=== PATIENT | female | born 1965 | race Caucasian/White ===

== ENCOUNTER 2019-03-15 06:18 | Inpatient (IN) ==
--- NOTE | 2019-01-17 10:57 | PAT Medication Instructions ---
Medication Instructions Date of Service January 17, 2019 Home Medications amitriptyline 50 mg PO QPM aspirin [Aspir-81] 81 mg PO DAILY atorvastatin 10 mg PO PM biotin 5,000 mcg PO DAILY plcfkdcfoa-arwncxmldylqq-avkv 1 cap PO UD PRN cholecalciferol (vitamin D3) 1,000 unit PO DAILY cinnamon bark [Cinnamon] 2,000 mg PO DAILY cranberry 1 dose PO DAILY cyanocobalamin (vitamin B-12) 1,000 mcg PO DAILY diphenhydramine HCl [Benadryl] 25 mg PO UD PRN ferrous sulfate [iron] 325 mg PO DAILY glucosamine-chondroitin 1 tab PO DAILY hydrochlorothiazide 12.5 mg PO QAM insulin detemir U-100 [Levemir 38 unit SUBCUT BID lactobacillus combination no.4 1 tab PO DAILY meloxicam 15 mg PO QPM metformin 1,000 mg PO BID metoprolol tartrate 50 mg PO BID milk thistle seed extract 140 mg PO DAILY multivitamin [Multiple Vitamins] 1 tab PO DAILY niacin 500 mg PO QPM omega 8-fwv-uua-fish oil [Fish Oil] 2 cap PO DAILY omeprazole 40 mg PO QPM prasterone (dhea) [DHEA] 50 mg PO DAILY rizatriptan [Maxalt] 1 dose PO UD PRN trazodone 50 mg PO HS turmeric 1 cap PO DAILY ASK your surgeon for instructions qoppzxqpsl-jnzmauhiqdioy-wler 1 cap PO UD PRN meloxicam 15 mg PO QPM STOP taking 2 weeks before surgery (or as soon as possible if surgery is within 2 weeks) biotin 5,000 mcg PO DAILY cinnamon bark [Cinnamon] 2,000 mg PO DAILY cranberry 1 dose PO DAILY glucosamine-chondroitin 1 tab PO DAILY milk thistle seed extract 140 mg PO DAILY omega 4-tmk-pnh-fish oil [Fish Oil] 2 cap PO DAILY prasterone (dhea) [DHEA] 50 mg PO DAILY turmeric 1 cap PO DAILY STOP taking 24 hours before surgery niacin 500 mg PO QPM DO NOT take the morning of surgery cholecalciferol (vitamin D3) 1,000 unit PO DAILY cyanocobalamin (vitamin B-12) 1,000 mcg PO DAILY diphenhydramine HCl [Benadryl] 25 mg PO UD PRN ferrous sulfate [iron] 325 mg PO DAILY lactobacillus combination no.4 1 tab PO DAILY metformin 1,000 mg PO BID multivitamin [Multiple Vitamins] 1 tab PO DAILY Take morning of surgery With a small sip of water, OTHERWISE NOTHING TO EAT OR DRINK AFTER MIDNIGHT: aspirin [Aspir-81] 81 mg PO DAILY metoprolol tartrate 50 mg PO BID rizatriptan [Maxalt] 1 dose PO UD PRN (if needed) Take evening before surgery amitriptyline 50 mg PO QPM atorvastatin 10 mg PO PM diphenhydramine HCl [Benadryl] 25 mg PO UD PRN (if needed) insulin detemir U-100 [Levemir 38 unit SUBCUT BID metoprolol tartrate 50 mg PO BID omeprazole 40 mg PO QPM rizatriptan [Maxalt] 1 dose PO UD PRN (if needed) trazodone 50 mg PO HS Insulin Dependent Diabetic Patients * Test your blood sugar the morning of surgery * If Blood Sugar is GREATER THAN 150, take HALF of your regular dose of: insulin detemir U-100 [Levemir take 19 units * If Blood Sugar is LESS THAN 150, DO NOT TAKE ANY: insulin detemir U-100 [Levemir Other Notes If you have any questions please call us at [phone] or [phone] or [phone] or [phone]
--- NOTE | 2019-01-17 11:52 | Anesthesiology Consultation ---
Date of Service January 17, 2019 Assessment & Plan (1) Encounter for pre-operative examination: - Surgery is being cancelled at this point due to lack of surgeon's availability. Will need to be rescheduled at a later date. Chart Review Chart Review: Patient seen in Pre Admission Testing Consults Requested medical (Dr. Leon (already cleared)) Patient was seen by PCPs office on 12/28/18. Per note, "Medically cleared for knee surgery". Teaching & Discussion Pre-Anesthesia Teaching/Discussion Notes: Instructed NPO after midnight before surgery, except medications with 15 cc of water. Medication instructions provided according to the PAT guidelines. History Surgery Operation Date: 02/02/19 09:35 Proposed Procedures p Left Total Knee Arthroplasty - Yves Gates MD Height/Weight Height: 5 ft 4 in Weight: 90.8 kg Allergies Allergy/AdvReac Type Severity Reaction Status Date / Time No Known Allergies Allergy Verified 01/10/19 11:46 Medications Home Medications Medication Instructions Recorded Confirmed Last Taken amitriptyline 50 mg PO QPM 01/10/19 01/10/19 01/09/19 aspirin [Aspir-81] 81 mg PO DAILY 01/10/19 01/10/19 01/09/19 atorvastatin 10 mg PO PM 01/10/19 01/10/19 01/09/19 biotin 5,000 mcg PO DAILY 01/10/19 01/10/19 Unknown oebazkzfzw-tygsuswqgxced-drhn 1 cap PO UD PRN 01/10/19 01/10/19 Unknown [Fioricet] cholecalciferol (vitamin D3) 1,000 unit PO DAILY 01/10/19 01/10/19 Unknown [Vitamin D3] cinnamon bark [Cinnamon] 2,000 mg PO DAILY 01/10/19 01/10/19 Unknown cranberry 1 dose PO DAILY 01/10/19 01/10/19 Unknown cyanocobalamin (vitamin B-12) 1,000 mcg PO DAILY 01/10/19 01/10/19 Unknown [Vitamin B-12] diphenhydramine HCl [Benadryl] 25 mg PO UD PRN 01/10/19 01/10/19 Unknown ferrous sulfate [iron] 325 mg PO DAILY 01/10/19 01/10/19 Unknown glucosamine-chondroitin 1 tab PO DAILY 01/10/19 01/10/19 Unknown hydrochlorothiazide 12.5 mg PO QAM 01/10/19 01/10/19 01/10/19 insulin detemir U-100 [Levemir 38 unit SUBCUT BID 01/10/19 01/10/19 01/10/19 FlexTouch U-100 Insuln] lactobacillus combination no.4 1 tab PO DAILY 01/10/19 01/10/19 Unknown [Probiotic] meloxicam 15 mg PO QPM 01/10/19 01/10/19 01/09/19 metformin 1,000 mg PO BID 01/10/19 01/10/19 01/10/19 metoprolol tartrate 50 mg PO BID 01/10/19 01/10/19 01/10/19 milk thistle seed extract 140 mg PO DAILY 01/10/19 01/10/19 Unknown multivitamin [Multiple Vitamins] 1 tab PO DAILY 01/10/19 01/10/19 Unknown niacin 500 mg PO QPM 01/10/19 01/10/19 01/09/19 omega 6-ohy-ggi-fish oil [Fish Oil] 2 cap PO DAILY 01/10/19 01/10/19 Unknown omeprazole 40 mg PO QPM 01/10/19 01/10/19 01/09/19 prasterone (dhea) [DHEA] 50 mg PO DAILY 01/10/19 01/10/19 Unknown rizatriptan [Maxalt] 1 dose PO UD PRN 01/10/19 01/10/19 Unknown trazodone 50 mg PO HS 01/10/19 01/10/19 01/09/19 turmeric 1 cap PO DAILY 01/10/19 01/10/19 Unknown Past Medical History Medical History Acid reflux Anemia "SLIGHTLY" Diabetes Fluttering sensation of heart HX OF - NO OCCURENCE IN PAST 2 YRS High triglycerides History of anesthesia reaction 1992 - WITH , EPIDURAL DID NOT TAKE , 1996 - NO PROBLEMS WITH History of diverticulitis History of kidney stones Hyperlipidemia Hypertension Loud snoring SLEEP STUDY 10 YR AGO - NO FINDINGS Migraines Osteoarthritis Trouble swallowing STARTED 2 YR AGO - HX ESOPHAGEAL STRETCH X1..HELPED FOR 1 YR -RE-OCCURED - UPCOMING [facility] March - [facility] [place] Varicose vein of leg RIGHT Past Family History Family History Grandmother Family history of breast cancer Other Family history of heart disease Past Surgical History Surgical History History of 2 sections History of cholecystectomy History of colon resection WITH APPENDECTOMY AND RIGHT OPHERECTOMY History of colonoscopy History of endoscopy WITH ESOPHAGEAL STRETCHING History of hernia surgery WITH MESH Past Anesthesia History No Hx of Anesthesia Complications and No Family Hx of Anesthesia Complications History of PONV No Motion Sickness Screening History of Motion Sickness: No Social History Smoking Status: Former smoker tobacco type: cigarettes Do You Dip or Chew Tobacco: No Smoking End Date: Quit 2003 Hx Alcohol Use: No Hx Substance Use: No substance use type: does not use Exercise / Class Metabolic Activity II 4-5 Yardwork/Stairs/Walk up hill (Limited recently due to knee pain. Able to climb stairs. Denies CP or SOB. ) Review of Systems Patient denies chest pain, shortness of breath, dyspnea on exertion, cough, wheezing, palpitations. +Joint pain (knees) +Acid reflux (Controlled with current medications) Physical Exam Vital Signs BP: 140/82 P: 68 R: 16 T: 98.0 SPO2: 97% on RA Constitutional + obese ENMT Mouth: + dentures (Full upper set, bottom partial ) Thyromental Distance: > or= 3.5 Finger Breadths (3.5) Mallampati Class: II Neck normal visual inspection and + thick neck; neck extension not limited Respiratory normal respiratory effort Auscultation: lungs clear to auscultation bilaterally Cardiovascular Rate/Rhythm: regular rate and regular rhythm Heart Sounds: no murmur Vessels: no carotid bruit Neurologic moves all extremities Psychiatric Orientation: alert and oriented x 3 Testing Electrocardiogram Date: 01/17/19 Findings: + NSR @ (66) Chest X-Ray Date: 01/17/19 Laboratory Results 01/17/19 11:35 01/17/19 11:35 Blood Type AB Negative 01/17/19 11:35 Antibody Screen NEGATIVE 01/17/19 11:35 PT 10.1 Seconds (9.0-12.0) 01/17/19 11:35 INR 1.0 (0.9-1.1) 01/17/19 11:35 APTT 24.9 Seconds (21.0-31.0) 01/17/19 11:35 Hemoglobin A1c 7.6 % (4.5-5.6) H 01/17/19 11:35 Urine Color Yellow 01/17/19 Unknown Urine Appearance Clear (Clear) 01/17/19 Unknown Urine pH 6.5 (4.5-7.5) 01/17/19 Unknown Ur Specific [place] 1.017 (1.000-1.030) 01/17/19 Unknown Urine Protein Trace (Negative) H 01/17/19 Unknown Urine Glucose (UA) 3+ (Negative) H 01/17/19 Unknown Urine Ketones Negative (Negative) 01/17/19 Unknown Urine Nitrite Negative (Negative) 01/17/19 Unknown Ur Leukocyte Esterase Negative (Negative) 01/17/19 Unknown Urine WBC (Auto) 0 /hpf (0-5) 01/17/19 Unknown Urine RBC (Auto) 0-4 /hpf (0-4) 01/17/19 Unknown U Hyaline Cast (Auto) 0 /lpf (0-5) 01/17/19 Unknown U Epithel Cells (Auto) 20-30 /lpf (0-5) H 01/17/19 Unknown Urine Bacteria (Auto) Negative (Negative) 01/17/19 Unknown 01/17/19 Unknown Urine Culture - Preliminary Urine,Clean Catch Pin-point growth present, reincubating.
[2019-01-17 12:07] LABS: Basophils # (auto) 0.04 K/uL (0-0.2); Basophils % (auto) 0.6 %; Eosinophils # (auto) 0.14 K/uL (0-0.5); Eosinophils % (auto) 2.1 %; Hemoglobin 13.8 g/dL (12.0-16.0); Immature Granulocytes # (auto) 0.01 K/uL (0.00-0.02); Immature Granulocytes % (auto) 0.2 %; Lymphocytes # (auto) 2.68 K/uL (1.2-3.4); Lymphocytes % (auto) 40.5 %; Mean Corpuscular Hgb Conc 34.5 g/dL (32-36); Mean Corpuscular Volume 97.6 fL (80-100); Mean Platelet Volume 9.2 fL (7.4-10.4); Monocytes # (auto) 0.44 K/uL (0.11-0.59); Monocytes % (auto) 6.7 %; Neutrophils % (auto) 49.9 %; Platelet Count 316 K/uL (130-400); RDW Coefficient of Variation 12.6 % (11.5-14.5); RDW Standard Deviation 44.4 fL (36.4-46.3); White Blood Count 6.61 K/uL (4.8-10.8)
[2019-01-17 12:14] LABS: Appearance Urine Clear (Clear); Bacteria Urine Automated Negative (Negative); Bilirubin Urine Negative (Negative); Blood Urine Negative (Negative); Cast Urine Automated 0 /lpf (0-5); Color Urine Yellow; Epithelial Cell Urine Auto 20-30 /lpf (0-5); Glucose Urine UA 3+ (Negative); Ketones Urine Negative (Negative); Leukocyte Esterase Urine Negative (Negative); Nitrite Urine Negative (Negative); Protein Urine Trace (Negative); RBC Urine Automated 0-4 /hpf (0-4); Specific Gravity Urine 1.017 (1.000-1.030); Urobilinogen Urine Negative (Negative); WBC Urine Automated 0 /hpf (0-5); pH Urine 6.5 (4.5-7.5)
[2019-01-17 12:23] LABS: Partial Thromboplastin Ratio 0.9; Partial Thromboplastin Time 24.9 Seconds (21.0-31.0); Prothrombin Time 10.1 Seconds (9.0-12.0)
[2019-01-17 12:35] LABS: Estimated Average Glucose 171 mg/dl; Hemoglobin A1C 7.6 % (4.5-5.6)
--- NOTE | 2019-01-17 12:49 | XRay Report ---
XR chest Pre-admission PA/Lat CLINICAL HISTORY: Preoperative chest COMPARISON STUDY: No previous studies for comparison. FINDINGS: The heart is at the upper limits of normal in size. There is no failure. There is no focal pulmonary consolidation. There are no pleural effusions.[ IMPRESSION: No active disease in the chest. Electronically signed by: Richard Mcgee M.D. 01/17/2019 12:47 PM
[2019-01-17 13:51] LABS: Albumin Level 3.9 gm/dl (3.4-5.0); Calcium 9.5 mg/dl (8.5-10.1); Creatinine Clr Calc Pharmacy 99.1 ml/min; Est GFR (Non-African American) 97.5; Potassium 4.1 mmol/L (3.5-5.1)
--- NOTE | 2019-03-14 17:27 | History and Physical Report ---
DATE OF ADMISSION: 03/15/2019 CHIEF COMPLAINT: Chronic right knee pain and instability. HISTORY OF PRESENT ILLNESS: This is a 53-year-old female patient of Dr. Chambers'marky complaining of chronic right knee pain and instability, longstanding, now progressively getting worse. The patient has failed conservative treatment including intra-articular injections with steroids and viscosupplementation, the use of glucosamine chondroitin, anti-inflammatories. The patient has increased pain with weightbearing activities and her pain does interfere with her activities of daily living. The patient has been diagnosed with right knee end-stage osteoarthritis per clinical and radiographic exams and wishes to proceed with a right total knee arthroplasty. PAST MEDICAL HISTORY: Hypertension, hypercholesterolemia, diabetes mellitus with insulin, anemia, osteoarthritis, neck problems, acid reflux, history of kidney stones. SOCIAL HISTORY: Nonsmoker, nondrinker. PAST SURGICAL HISTORY: C-sections x2, colectomy, cholecystectomy, right ovary removal, appendectomy and abdominal hernia. FAMILY HISTORY: Noncontributory. REVIEW OF SYSTEMS: Chronic right knee pain and instability. Otherwise denies any shortness of breath, chest pain, nausea, vomiting or any other joint complaints. MEDICATIONS: Levemir 30 units twice daily, hydrochlorothiazide 12.5 mg daily, metformin 1000 mg twice daily, metoprolol 50 mg twice daily, iron 325 mg daily, biotin 5000 mcg daily, vitamin B12 1000 mcg daily, multivitamin daily, glucosamine chondroitin twice daily, cinnamon 1000 mg twice daily, DHEA 50 mg daily, niacin extended release 500 mg daily, omeprazole 40 mg daily, aspirin 81 mg daily, vitamin D3 1000 international units daily, milk thistle 140 mg daily, probiotic daily, cranberry daily, fish oil daily, turmeric twice daily, trazodone 50 mg at bedtime, Esgic as needed for migraine, and Maxalt 10 mg as needed for migraines. ALLERGIES: No known drug allergies. PHYSICAL EXAMINATION: GENERAL: Well-developed, well-nourished 53-year-old female, in no acute distress. She is alert and oriented x3 and pleasant. HEENT: Normocephalic, atraumatic. Extraocular motions are intact. Pupils are equal and reactive to light. HEART: Regular rate and rhythm, no murmurs. LUNGS: Clear. ABDOMEN: Soft, nontender, bowel sounds present. EXTREMITIES: Right knee medial joint line tenderness with a varus deformity. Range of motion is limited to 0-125 degrees. She has a mild effusion and crepitation with passive range of motion. She has 5/5 strength. NEUROLOGIC: Neurovascularly, she is intact in her right lower extremity. DIAGNOSES: Right knee end-stage osteoarthritis, hypertension, hypercholesterolemia, diabetes mellitus with insulin, anemia, osteoarthritis, neck problems, acid reflux, kidney stones. PLAN: The patient was advised of her diagnosis. Indications, risks, benefits, and postop course have all been reviewed. The patient wishes to proceed with a right total knee arthroplasty. Necessary consent forms, preoperative testing and clearances will be obtained.
[~2019-03-15 06:18] MED LIST: ACETAMINOPHEN 500 MG TAB PO SCH; CEFAZOLIN 2000MG 2,000 MG/15 ML SYR IV SCH; CeleBREX 200 MG CAP PO SCH; FAMOTIDINE 20 MG TAB PO SCH; GABAPENTIN 300 MG x 2 PO SCH; LR 500ML BOLUS, THEN 15ML/HR IV SCH; METOCLOPRAMIDE HCL 10 MG TABLET PO SCH; ROPIVACAINE 0.5% HCL/PF 150 MG, BUPIVACAINE 0.5% MPF 30 ML, EPINEPHrine 30MG/30ML (OR U... INFIL SCH; TRANEXAMIC ACID 1,000 MG **IV Pre-op IV SCH
[2019-03-15] MEDS ORDERED: TRANEXAMIC ACID 1,000 MG **IV Intra-op IV SCH (06:30)
[2019-03-15] MEDS ORDERED: BUPIVACAINE 0.5 % 5 MG/1 ML PF 10ML VIAL ONE (06:35)
[2019-03-15] MEDS ORDERED: ROPIVACAINE 0.5% 5 MG/ML 30 ML VIAL ONE (06:35)
[2019-03-15] MEDS ORDERED: KETAMINE HCL INJ 50 MG/ML 10 ML VIAL ONE (06:48)
[2019-03-15] MEDS ORDERED: MIDAZOLAM HCL 1 MG/ML 2ML VIAL ONE (06:48)
--- NOTE | 2019-03-15 07:12 | History & Physical Bridge Note ---
Date of Service March 15, 2019 History & Physical Bridge Note I have examined the patient, reviewed the History & Physical and in the interval since the performance of the History & Physical I have noted the following changes of clinical significance: no changes noted
[2019-03-15] MEDS ORDERED: ORTHO JOINT ANESTHETIC ONE (07:33)
[2019-03-15] MEDS ORDERED: BACITRACIN INJ 50,000 UNIT VIAL ONE (07:33)
[2019-03-15] MEDS ORDERED: ePHEDrine sulfate 50 MG/ML AMP IV PRN (08:15)
[2019-03-15] MEDS ORDERED: fentaNYL citrate 100 MCG/2 ML VIAL IV PRN (08:15)
[2019-03-15] MEDS ORDERED: ONDANSETRON INJ 2 MG/ML 2 ML VIAL IV PRN ×2 (08:15→12:21)
[2019-03-15] MEDS ORDERED: ATROPINE SULFATE 0.1 MG/ML 10ML SYR IV PRN (08:15)
[2019-03-15] MEDS ORDERED: GLYCOPYRROLATE 0.2 MG/ML VIAL ONE (08:58)
[2019-03-15] MEDS ORDERED: ONDANSETRON INJ 2 MG/ML 2 ML VIAL ONE (08:58)
[2019-03-15] MEDS ORDERED: DEXAMETHASONE SOD INJ 4 MG/ML VIAL ONE (08:58)
[2019-03-15] MEDS ORDERED: PROPOFOL IV EMULSION 10 MG/ML 20 ML VIAL IV ONE ×3 (08:58→09:56)
[2019-03-15] MEDS ORDERED: LIDOCAINE HCL 2% 2 ML VIAL/AMP(20MG/ML) INFIL ONE (08:58)
--- NOTE | 2019-03-15 10:31 | Post Operative Brief Note ---
Immediate Post Op Note v1 Date of Surgery March 15, 2019 Pre & Post Diagnosis Operation Date: 03/15/19 08:40 Pre-Op Diagnosis: Right Knee Osteoarthritis Post-Op Diagnosis: Right Knee Osteoarthritis Procedure Operation Date: 03/15/19 08:40 Actual Procedures p Right Total Knee Arthroplasty(Right) - Adam Chambers MD Surgeon Adam Chambers MD Sawmill Moulder Operator Thong DUNN Estimated Blood Loss 5 Findings Consistent with Post-Op Diagnosis Specimens BONE CUTS Drains Hemovac Drain Complications minor hairline fracture lateral femoral condyle Disposition Accompanied Patient To Recovery: No Disposition: Recovery Room Overlapping Procedure I was present for: the critical portions of procedure.
--- NOTE | 2019-03-15 10:48 | Operative Report ---
Post Operative Report Pre & Post Diagnosis Operation Date: 03/15/19 08:40 Pre-Op Diagnosis: Right Knee Osteoarthritis Post-Op Diagnosis: Right Knee Osteoarthritis Procedure Operation Date: 03/15/19 08:40 Actual Procedures p Right Total Knee Arthroplasty(Right) - Adam Chambers MD Surgeon Adam Chambers MD Physician Non Invasive Cardiologist Thong DUNN Estimated Blood Loss 5 Findings Consistent with Post-Op Diagnosis Specimens Bone cuts Drains 2 Hemovac Anesthesia Type Spinal MAC Complications Minor hairline fracture anterior lateral femoral condyle Disposition Accompanied Patient To Recovery: No Disposition: Recovery Room Indications 53-year-old female with chronic progressive osteoarthritis in her knee. She has a varus knee of flexion contracture and ujqg-[id number] medial compartment. Description of Procedure Patient taken to the operating room the size under spinal MAC regional block anesthesia. Patient was placed supine on the operating table. A pneumatic tourniquet was placed about the right upper thigh. The right lower extremity was prepped and draped in sterile fashion. Knee exam demonstrated stable ligaments 10 degree flexion contracture, flexion to 130 degrees. The leg was elevated exsanguinated with an Esmarch bandage and pneumatic tourniquet was raised to 300 millimeters of mercury. Skin incised sharply in longitudinal fashion. Subcutaneous flaps elevated. Incision was made through the medial retinaculum extending up in the mid third of the quadriceps tendon and down to the medial tibial tubercle. Intra-articular findings demonstrated patello- femoral and medial compartment OA ,patellofemoral osteophytes ,[id number] medial compartment with grade 4 osteoarthritis. The Inhale Digital triathlon total knee arthroplasty system was used. To expose the knee the infrapatellar fat pad was resected. The meniscal remnants and cruciate ligaments were resected. The anterior fat pad over the femur in the area of the anterior flange of the femoral component was resected. Lateral synovial bands release. The femur was exposed. An intramedullary drill hole was made into the canal. A guide tania was placed. Distal femoral cutting guide was adjusted to resect a 5 degree valgus cut with 10 millimeters distal femur resected. The knee was extended and a subperiosteal peel lateral release was performed around the patella. Patella width was measured and width was reproduced using a freehand cut technique and a 33 patella component. The 3 drill holes were made and the excess lateral facet was beveled off to prevent any impingement. Attention was taken back to the femur which was exposed with retractors and the femoral sizing guide was pinned in position. The drill holes were placed in 3 of external rotation to match epicondylar axis. Femur sized for a 3 component. The 4-in-1 cutting block was placed and then the anterior posterior and chamfer cuts are made. The tibia was then subluxed. The external tibial cutting guide was just to make a perpendicular cut to the long axis of the tibia below the most deficient bone loss side. A lamina art coordinator was used and the flexion extension gaps were balanced. All posterior osteophytes removed. All meniscal remnants were resected. The tibia exposed and the trial tibial component size 2 was externally rotated in line with the tibial tubercle and pinned in position. The punch for stem was used. The notch cutting device was centered appropriately and the femoral notch cut was made. Patient had hard bone and while I was inserting the femoral trial we noticed a slight oblique hairline crack at the corner of the notch toward the lateral femoral condyle side that extended about a centimeter then we stopped placing the trial in place. We assess this and only involve the anterior cortex of the femur adjacent to the lateral femoral condyle. There was slight micromotion at that site. The posterior bone was all intact. At this time I placed the 4-in-1 cutting block back in place and when the saw blade over to assure all these cuts were appropriate and then placed the notch cutting guide back in place we did that cut just to assure there was enough bone that was resected. We carefully replaced the trial back in position without difficulty. Since I removed a little more bone the trial went on easier. Trial tibial inserts were placed and size 9 gave balanced ligaments through flexion and extension. Patella tracking was assessed. The patella tracked centrally. The trial components were then removed and the orthomix anesthetic cocktail was injected per protocol. The knee was then copiously irrigated with pulsatile lavage antibiotic solution. Final components were then cemented with Simplex cement. Final components were Ray triathlon posterior stabilized right size 3 femoral component, size 2 primary tibial baseplate, 2 x 9 mm posterior stabilized triathlon X3 polyethylene tibial bearing insert, triathlon X3 symmetrical patella 33 x 9 mm. While the cement cured the Betadine soak was used per protocol. After cement cured further pulsatile lavage irrigation performed and 2 Hemovac drains were brought out laterally. The quadriceps tendon and medial retinaculum were closed with figure of 8 #1 Vicryl sutures. The knee was taken through full range of motion and the repair was sec ure. The subcutaneous tissues were closed with 2-0 Vicryl sutures. Skin was closed with clarissa. Sterile dressings were applied. Patient procedure well. Thong DUNN was my physician sound assistant who assisted in patient positioning prepping and draping,leg positioning ,soft tissue retraction and instrument management and participated in the closing and will participate in postoperative care of the patient. The patient tolerated the procedure well. I attest to the content of the Intraoperative Record and any orders documented therein. Any exceptions are noted below.
--- NOTE | 2019-03-15 11:31 | XRay Report ---
RIGHT KNEE 2 VIEWS History: Right total knee arthroplasty. Degenerative arthritis. Postop. FINDINGS: The patient is status post a right total knee arthroplasty. The hardware is intact. No frac ture or dislocation. Skin clarissa and surgical drains are in place. IMPRESSION: Right total knee arthroplasty. No evidence for hardware complication. Electronically signed by: Raulito Miner M.D. 03/15/2019 11:30 AM
--- NOTE | 2019-03-15 11:56 | Anesthesiology Progress Note ---
Date of Service March 15, 2019 Anesthesia Post Procedure Vital Signs Vital Signs: Temp Pulse Resp BP Pulse Ox 03/15/19 11:35 98.6 F 79 16 142/74 H 96 03/15/19 11:25 78 14 140/71 94 03/15/19 11:15 75 14 134/70 100 03/15/19 11:05 78 16 121/64 98 03/15/19 10:59 98.6 F 91 H 16 116/58 L 98 03/15/19 07:01 97.9 F 66 15 160/83 H 98 Pain Intensity Left Knee: Pain Intensity: 5 Transfer of Care Handoff Completed per policy Notes Mental Status: alert / awake / arousable and participated in evaluation Patient Amnestic to Procedure: Yes Nausea / Vomiting: adequately controlled Pain: adequately controlled Airway Patency, RR, SpO2: stable & adequate BP & HR: stable & adequate Hydration State: stable & adequate Neuraxial Anesthesia: was administered and sensory block is resolving Anesthetic Complications: no major complications apparent and Pt Satisfied with anesthetic care
[2019-03-15] MEDS ORDERED: METOCLOPRAMIDE HCL INJ 5 MG/ML 2 ML VIAL IV PRN (12:21)
[2019-03-15] MEDS ORDERED: RIZATRIPTAN BENZOATE 10 MG TAB PO PRN (12:21)
[2019-03-15] MEDS ORDERED: NALOXONE HCL 0.4 MG/1 ML VIAL/CARP IV PRN (12:21)
[2019-03-15] MEDS ORDERED: PHARMACY GLYCEMIC MGMT CONSULT STA (12:21)
[2019-03-15] MEDS ORDERED: BISACODYL 10 MG SUPP PR PRN (12:21)
[2019-03-15] MEDS ORDERED: MAGNESIUM HYDROXIDE SUSP 30 ML UDC PO PRN (12:21)
[2019-03-15] MEDS ORDERED: SODIUM CHLORIDE 0.9% 1000ML 1,000 ML IV SCH (12:21)
[2019-03-15] MEDS ORDERED: PHARMACY GLYCEMIC MGMT CONSULT PRN (13:19)
[2019-03-15] MEDS ORDERED: INSULIN DETEMIR FLEXPEN/FLEX TOUCH 100 UNITS/ML 3ML SQ STA (13:24)
[2019-03-15] MEDS ORDERED: DEXTROSE 50% 50 ML SYRINGE IV PRN (13:30)
[2019-03-15] MEDS ORDERED: GLUCOSE 40% GEL 15 GM TUBE PO PRN (13:30)
[2019-03-15] MEDS ORDERED: GLUCOSE 10 TABS/TUBE PO PRN (13:30)
[2019-03-15] MEDS ORDERED: CARBOHYDRATES FOR HYPOGLYCEMIA PO PRN (13:30)
[2019-03-15] MEDS ORDERED: GLUCAGON FOR INJ 1 MG VIAL IM PRN (13:30)
[2019-03-15] MEDS: INSULIN ASPART 100 UNITS/ML 3 ML PEN SC SCH ×3 (14:27→20:52)
--- NOTE | 2019-03-15 15:21 | Pharmacy Report ---
Pharmacy Glycemic Short Note 2 - Date of Service March 15, 2019 - Glycemic Short BSG Results (Last 24 hours): 03/15/19 03/15/19 03/15/19 07:18 11:02 12:09 POC Glucose 205 H 168 H 194 H OUTPATIENT ANTIDIABETIC REGIMEN: * Levemir 38 units SQ BID * Metformin 1gm PO BID * HbA1c: 7.6% (01/17/19) ASSESSMENT: * Ms Black is a 53yo diabetic female POD 0 s/p R TKA with Dr Chambers this morning. * Patient received dexamethasone 4mg IV pre-op this morning. This is expected to contribute to significant steroid-induced hyperglycemia. * Patient was given an increased dose of Levemir post-op and started on Novolog in an effort to minimize post-op hyperglycemia to discourage infection and promote wound healing. PLAN FOR INPATIENT GLYCEMIC CONTROL: * Hold outpatient oral diabetes medications * Will resume Metformin in the morning * Basal insulin * Levemir 60 units SQ x1 dose post-op * Levemir 10-30 units x1 dose tonight, based on BSGs * Bolus insulin * NovoLog per scale ACHS or Q6hrs while NPO -- will also order accuchecks/coverage for 00 and 04 tonight * Goal Range: Low 110 mg/dL - High 140 mg/dL * Correction Factor: 15 mg/dL/unit * Nutritional / Prandial insulin per carb ratio of 1 unit per 5 grams CHO consumed PLAN FOR DISCHARGE: * Patients recent A1c (7.6%) indicates fairly well-controlled BSGs as an outpatient. * Would recommend f/u with PCP to work toward optimizing A1c. * Expect that patient may resume home regimen on discharge, as long as she does not report having episodes of hypoglycemia.
[2019-03-15] MEDS: ACETAMINOPHEN 500 MG TAB PO SCH (15:51)
[2019-03-15] MEDS: FERROUS GLUCONATE 324 MG TAB PO SCH (17:43)
[2019-03-15] MEDS: CEFAZOLIN 2000MG 2,000 MG/15 ML SYR IV SCH (18:13)
[2019-03-15] MEDS: NIACIN 500 MG TAB PO SCH (20:38)
[2019-03-15] MEDS: ASPIRIN 81 MG ECTAB PO SCH (20:38)
[2019-03-15] MEDS: PANTOprazole 40 MG TAB PO SCH (20:38)
[2019-03-15] MEDS: ATORVASTATIN 10 MG TAB PO SCH (20:39)
[2019-03-15] MEDS: SENNA 8.6 MG TAB PO SCH (20:39)
[2019-03-15] MEDS: TRAZODONE HCL 50 MG TAB PO SCH (20:39)
[2019-03-15] MEDS: AMITRIPTYLINE HCL 50 MG TAB PO SCH (20:39)
[2019-03-15] MEDS: DOCUSATE SODIUM 100 MG CAP PO SCH (20:39)
[2019-03-15] MEDS: METOPROLOL TARTRATE 50 MG TAB PO SCH (20:41)
[2019-03-15] MEDS: OXYCODONE HCL IR 5 MG TAB (IMMEDIATE RELEASE) PO PRN (20:54)
[2019-03-15] MEDS ORDERED: INSULIN DETEMIR FLEXPEN/FLEX TOUCH 100 UNITS/ML 3ML SQ ONE (21:00)
[2019-03-16] MEDS: ACETAMINOPHEN 500 MG TAB PO SCH ×3 (00:04→15:27)
[2019-03-16] MEDS: INSULIN ASPART 100 UNITS/ML 3 ML PEN SC SCH ×6 (00:10→21:06)
[2019-03-16] MEDS: CEFAZOLIN 2000MG 2,000 MG/15 ML SYR IV SCH (01:20)
[2019-03-16] MEDS: OXYCODONE HCL IR 5 MG TAB (IMMEDIATE RELEASE) PO PRN ×5 (04:22→21:58)
[2019-03-16] MEDS: HYDROmorphone INJ 0.5 MG/0.5 ML SYR IV PRN ×4 (06:41→20:58)
[2019-03-16 07:02] LABS: Hematocrit (blood only) 32.4 % (37-47); Hemoglobin 11.1 g/dL (12.0-16.0); Mean Corpuscular Hgb Conc 34.3 g/dL (32-36); Mean Corpuscular Volume 94.5 fL (80-100); Mean Platelet Volume 8.6 fL (7.4-10.4); Platelet Count 243 K/uL (130-400); RDW Coefficient of Variation 12.5 % (11.5-14.5); Red Blood Count 3.43 M/uL (4.2-5.4); White Blood Count 9.13 K/uL (4.8-10.8)
[2019-03-16 07:35] LABS: BUN Creatinine Ratio 17.4 (10-20); Calcium 8.7 mg/dl (8.5-10.1); Est GFR (African American) 107.5; Est GFR (Non-African American) 92.7; Potassium 3.7 mmol/L (3.5-5.1)
--- NOTE | 2019-03-16 08:11 | Anesthesiology Progress Note ---
Date of Service March 16, 2019 Anesthesia Post Procedure Vital Signs Vital Signs: Temp Pulse Pulse Pulse Resp BP BP 03/16/19 07:48 36.6 C 63 16 122/77 03/16/19 02:57 36.7 C 68 16 121/54 L 03/15/19 23:27 37.0 C 65 16 104/55 L 03/15/19 20:41 84 131/79 03/15/19 19:27 36.8 C 91 H 19 157/84 H 03/15/19 15:39 36.9 C 86 18 136/81 03/15/19 14:11 81 16 148/78 H 03/15/19 13:29 84 16 131/76 03/15/19 12:40 74 16 131/77 03/15/19 12:00 36.7 C 75 16 132/77 03/15/19 11:35 37 C 79 16 142/74 H 03/15/19 11:25 78 14 140/71 03/15/19 11:15 75 14 134/70 03/15/19 11:05 78 16 121/64 03/15/19 10:59 37 C 91 H 16 116/58 L Pulse Ox 03/16/19 07:48 99 03/16/19 02:57 96 03/15/19 23:27 95 03/15/19 20:41 03/15/19 19:27 96 03/15/19 15:39 95 03/15/19 14:11 98 03/15/19 13:29 96 03/15/19 12:40 95 03/15/19 12:00 94 03/15/19 11:35 96 03/15/19 11:25 94 03/15/19 11:15 100 03/15/19 11:05 98 03/15/19 10:59 98 Pain Intensity Left Knee: Pain Intensity: 0 Head: Pain Intensity: 6 Notes Mental Status: alert / awake / arousable and participated in evaluation Patient Amnestic to Procedure: Yes Nausea / Vomiting: adequately controlled Pain: adequately controlled Airway Patency, RR, SpO2: stable & adequate BP & HR: stable & adequate Hydration State: stable & adequate Neuraxial Anesthesia: was administered and sensory block resolved Anesthetic Complications: no major complications apparent and Pt Satisfied with anesthetic care
[2019-03-16] MEDS: CYANOCOBALAMIN 500 MCG TABLET (VITAMIN B-12) PO SCH (08:51)
[2019-03-16] MEDS: METOPROLOL TARTRATE 50 MG TAB PO SCH ×2 (08:51→20:53)
[2019-03-16] MEDS: METFORMIN HCL 500 MG TAB PO SCH ×2 (08:51→17:53)
[2019-03-16] MEDS: FERROUS GLUCONATE 324 MG TAB PO SCH ×2 (08:51→17:53)
[2019-03-16] MEDS: MULTIVITAMIN TAB PO SCH (08:51)
[2019-03-16] MEDS: ASPIRIN 81 MG ECTAB PO SCH ×2 (08:52→20:48)
[2019-03-16] MEDS: CHOLECALCIFEROL 1,000 UNITS TAB PO SCH (08:52)
[2019-03-16] MEDS: DOCUSATE SODIUM 100 MG CAP PO SCH ×2 (08:52→20:49)
[2019-03-16] MEDS: INSULIN DETEMIR FLEXPEN/FLEX TOUCH 100 UNITS/ML 3ML SC SCH ×2 (08:54→21:05)
[2019-03-16] MEDS ORDERED: MULTIVITAMIN TAB PO SCH (09:00)
[2019-03-16] MEDS ORDERED: PRASTERONE 50 MG PO SCH (09:00)
--- NOTE | 2019-03-16 13:55 | Hospitalist Consultation ---
Date of Consultation March 16, 2019 Assessment & Plan (1) Status post total right knee replacement: - Doing well post-operatively - some increased pain today after therapy and was awaiting pain medications - Pain management, PT/OT, DVT prophylaxis, Surgical management per primary - DVT prophylaxis - ASA 81 mg BID Present on Admission?: Yes (2) Essential hypertension: - Takes HCTZ which is on hold - patient states she feels a little dry and can continue to hold as BP is stable with only rare intermittent highs - Renal function appropriate and could be restarted if she feels less dehydrated - can also wait until D/C if necessary - Continue Metoprolol 50 mg BID Present on Admission?: Yes (3) Mixed hyperlipidemia: - Atorvastatin 10 mg daily Present on Admission?: Yes (4) Type 2 diabetes mellitus: - A1c is 7.6 - Glycemic management following - appreciate monitoring and adjustments (5) GERD (gastroesophageal reflux disease): - Pantoprazole 40 mg daily (6) Migraine: - Reports a migraine yesterday but doing well today - Rizatriptan PRN (7) DVT prophylaxis: - ASA BID Disposition: Patient is stable from chronic medical conditions. Recommend to continue home medications upon discharge. Glycemic management following for glucose control. Hospitalist service will sign off at this time. Do not hesitate to contact us for questions or changes in medical condition. Supervising Physician Co-Signing Physician Notes Attending note: patient seen and examined with Radha Subramanian PA-C on 03/16. I agree with her HPI, history, exam, ROS and A/P. I personally reviewed the labs and imaging findings. Patient doing well after knee replacement. Minimal health issues with HTN and DM type II - HTN: continue home medications, follow BMP - DM type II: Novolog SS, diabetic diet - s/p TKA: management per ortho History of Present Illness Reason for Consultation: Post-Op Management Attending Physician: Adam Chambers MD History of Present Illness Ms. Black is a 53 y/o female with PMHx of T2DM, HTN, HLD, GERD, Anemia, and Migraines who is S/P R TKA on 03/15. Overall doing well post-operatively. Having some increasing pain since just working with therapy. Tolerated a diet without issue. Labs and vitals are stable. She reports no cardiac history to include SC or CHF. She denies H/O DVT/PE. She reports her sugars have been running high at home prior to surgery. Her last A1c was 7.6. Allergies Allergy/AdvReac Type Severity Reaction Status Date / Time No Known Allergies Allergy Verified 03/15/19 06:53 Home Medications Home Medications Medication Instructions Recorded Confirmed Type DHEA 50 mg PO DAILY 01/10/19 03/15/19 History Levemir FlexTouch U-100 Insuln 38 unit SUBCUT BID 01/10/19 03/15/19 History Probiotic 1 tab PO DAILY 01/10/19 03/15/19 History amitriptyline 50 mg PO QPM 01/10/19 03/15/19 History atorvastatin 10 mg PO PM 01/10/19 03/15/19 History biotin 5,000 mcg PO DAILY 01/10/19 03/15/19 History awzupheuii-hmqncsjalnzal-bmie 1 cap PO UD PRN 01/10/19 03/15/19 History [Fioricet] cholecalciferol (vitamin D3) 1,000 unit PO DAILY 01/10/19 03/15/19 History [Vitamin D3] cinnamon bark [Cinnamon] 2,000 mg PO DAILY 01/10/19 03/15/19 History cranberry 1 dose PO DAILY 01/10/19 03/15/19 History cyanocobalamin (vitamin B-12) 1,000 mcg PO DAILY 01/10/19 03/15/19 History [Vitamin B-12] diphenhydramine HCl [Benadryl] 25 mg PO UD PRN 01/10/19 03/15/19 History ferrous sulfate [iron] 325 mg PO DAILY 01/10/19 03/15/19 History glucosamine-chondroitin 1 tab PO DAILY 01/10/19 03/15/19 History hydrochlorothiazide 12.5 mg PO QAM 01/10/19 03/15/19 History metformin 1,000 mg PO BID 01/10/19 03/15/19 History metoprolol tartrate 50 mg PO BID 01/10/19 03/15/19 History milk thistle seed extract 140 mg PO DAILY 01/10/19 03/15/19 History multivitamin [Multiple Vitamins] 1 tab PO DAILY 01/10/19 03/15/19 History niacin 500 mg PO QPM 01/10/19 03/15/19 History omega 9-duc-xer-fish oil [Fish Oil] 2 cap PO DAILY 01/10/19 03/15/19 History omeprazole 40 mg PO QPM 01/10/19 03/15/19 History rizatriptan [Maxalt] 1 dose PO UD PRN 01/10/19 03/15/19 History trazodone 50 mg PO HS 01/10/19 03/15/19 History turmeric 1 cap PO DAILY 01/10/19 03/15/19 History acetaminophen [Tylenol Extra 1,000 mg PO Q8H 30 Days #180 tab 03/17/19 Rx Strength] aspirin [Ecotrin Low Strength] 81 mg PO BID 30 Days #60 tab 03/17/19 Rx oxycodone 5 mg PO Q4H PRN #30 tab 03/17/19 Rx Patient History Medical History Acid reflux Anemia "SLIGHTLY" Diabetes Fluttering sensation of heart HX OF - NO OCCURENCE IN PAST 2 YRS High triglycerides History of anesthesia reaction 1992 - WITH , EPIDURAL DID NOT TAKE , 1996 - NO PROBLEMS WITH History of diverticulitis History of kidney stones Hyperlipidemia Hypertension Loud snoring SLEEP STUDY 10 YR AGO - NO FINDINGS Migraines Osteoarthritis Trouble swallowing STARTED 2 YR AGO - HX ESOPHAGEAL STRETCH X1..HELPED FOR 1 YR -RE-OCCURED - UPCOMING [facility] March - [facility] [place] Varicose vein of leg RIGHT Surgical History History of 2 sections History of cholecystectomy History of colon resection WITH APPENDECTOMY AND RIGHT OPHERECTOMY History of colonoscopy History of endoscopy WITH ESOPHAGEAL STRETCHING History of hernia surgery WITH MESH Family History Grandmother Family history of breast cancer Other Family history of heart disease Social History Preferred Language: Wolof Communication Ability: Effective Outboard Motor Tester Required: No Beliefs That Will Affect Care: None marital status: Life Partner Current Living Situation: Significant Other Other Information That Helps Us Care for You: No Feels Safe at Home: Yes Smoking Status: Former smoker Tobacco Type: cigarettes Do You Dip or Chew Toba account resolution specialist: No Smoking End Date: Quit 2003 Hx Alcohol Use: No Hx Substance Use: No Review of Systems Constitutional: no fever and no chills Eyes: no worsening vision Ear, Nose, Mouth, Throat: no sore throat, no hoarseness and no dysphagia Respiratory: no cough and no dyspnea Cardiovascular: no chest pain, no palpitations, no lightheadedness and no edema Gastrointestinal: no abdominal pain, no nausea, no vomiting, no constipation and no diarrhea/loose stools Genitourinary: no dysuria Musculoskeletal: + joint pain (R knee) Integumentary: no rash Physical Exam Constitutional: WD/WN, vitals as above Eyes: + anicteric sclerae ENMT: Ears: no hearing impairment Neck: normal visual inspection and trachea midline Respiratory: normal respiratory effort, lungs clear to auscultation Cardiovascular: RRR, no murmur, no edema Gastrointestinal (Abdomen): Inspection/Auscultation: normal bowel sounds Percussion/Palpation: abdomen soft; abdomen nontender Musculoskeletal: Head/Neck/Chest: normocephalic, head atraumatic and neck supple R knee with bandage present C/D/I, movement to toes, no cyanosis Skin: no rashes, warm and dry Neurologic: moves all extremities Psychiatric: A+Ox3, euthymic affect Results & Data Vital Signs (Past 12 Hours) Vital Signs Temp Pulse Resp BP BP Pulse Ox 03/16/19 10:55 36.7 C 72 16 129/76 97 03/16/19 07:48 36.6 C 63 16 122/77 99 03/16/19 02:57 36.7 C 68 16 121/54 L 96 PG Care Time/CCT Total # of Minutes Spent Total Time Spent with Patient: Total time spent is greater than 50% in coordination of care (as documented) at patient's floor/unit and/or counseling patient:
--- NOTE | 2019-03-16 15:37 | Orthopedic Progress Note ---
Date of Service March 16, 2019 Assessment & Plan (1) Status post total right knee replacement: POD #1, Right TKA PT/ OT DVT proph- ASA D/C planning- Home w OPPT per medicine. Subjective POD #1, Doing well, denies SOB, CP, N/V. Pain controlled well. Physical Exam Physical Exam: Right knee dressings c/d/i, no drainage. Toes and ankle mobile. No calf tenderness. A&Ox3. Results & Data Vital Signs (Past 12 Hours) Vital Signs Temp Pulse Resp BP Pulse Ox 03/16/19 15:25 36.9 C 70 18 145/77 H 96 03/16/19 10:55 36.7 C 72 16 129/76 97 03/16/19 07:48 36.6 C 63 16 122/77 99
--- NOTE | 2019-03-16 16:20 | Pharmacy Report ---
Pharmacy Glycemic Short Note 2 - Date of Service March 16, 2019 - Glycemic Short BSG Results (Last 24 hours): 03/15/19 03/15/19 03/16/19 17:40 20:34 00:01 Glucose POC Glucose 149 H 136 H 159 H 03/16/19 03/16/19 03/16/19 04:18 06:45 08:30 Glucose 120 H POC Glucose 137 H 140 H 03/16/19 12:11 Glucose POC Glucose 208 H OUTPATIENT ANTIDIABETIC REGIMEN: * Levemir 38 units SQ BID * Metformin 1gm PO BID * HbA1c: 7.6% (01/17/19) ASSESSMENT: 03/16/19: * Home Levemir dose resumed this morning, as BSGs have been reasonable post-op. * Metformin also resumed this morning. * Expect that Novolog parameters may require "loosening" tomorrow morning. 03/15/19 * Ms Black is a 53yo diabetic female POD 0 s/p R TKA with Dr Chambers this morning. * Patient received dexamethasone 4mg IV pre-op this morning. This is expected to contribute to significant steroid-induced hyperglycemia. * Patient was given an increased dose of Levemir post-op and started on Novolog in an effort to minimize post-op hyperglycemia to discourage infection and promote wound healing. PLAN FOR INPATIENT GLYCEMIC CONTROL: * Metformin 1gm PO BID * Basal insulin * Levemir 38 units SQ BID * Bolus insulin * NovoLog per scale ACHS or Q6hrs while NPO * Goal Range: Low 110 mg/dL - High 140 mg/dL * Correction Factor: 15 mg/dL/unit * Nutritional / Prandial insulin per carb ratio of 1 unit per 5 grams CHO consumed PLAN FOR DISCHARGE: * Patients recent A1c (7.6%) indicates fairly well-controlled BSGs as an outpatient. * Would recommend f/u with PCP to work toward optimizing A1c. This may be achievable with diet/lifestyle modifications. * Expect that patient may resume home regimen on discharge, as long as she does not report having episodes of hypoglycemia.
[2019-03-16] MEDS: SENNA 8.6 MG TAB PO SCH (20:48)
[2019-03-16] MEDS: PANTOprazole 40 MG TAB PO SCH (20:49)
[2019-03-16] MEDS: ATORVASTATIN 10 MG TAB PO SCH (20:49)
[2019-03-16] MEDS: TRAZODONE HCL 50 MG TAB PO SCH (20:49)
[2019-03-16] MEDS: NIACIN 500 MG TAB PO SCH (20:49)
[2019-03-16] MEDS: AMITRIPTYLINE HCL 50 MG TAB PO SCH (20:49)
[2019-03-16] MEDS ORDERED: KETOROLAC 30 MG/ML VIAL IV STA (22:14)
[2019-03-16] MEDS ORDERED: DIAZEPAM 5 MG/ML INJ 10ML VIAL IV PRN (22:14)
--- NOTE | 2019-03-16 22:49 | Ultrasound Report ---
US venous doppler LE RT CLINICAL HISTORY: 53 years-old Female presenting with recent knee replacement, r/o dvt. TECHNIQUE: Real-time grayscale and color and spectral Doppler ultrasound imaging of the veins of the right was performed. Compression and augmentation were also utilized. COMPARISON: None. FINDINGS: RIGHT: Common femoral vein: Patent. Greater saphenous vein (superficial): Patent. Deep femoral vein: Patent. Femoral vein: Patent. Popliteal vein: Patent. Calf veins: Patent. Other: None. IMPRESSION: No evidence of deep venous thrombosis. Electronically signed by: Naun Espinal M.D. 03/16/2019 10:48 PM
[2019-03-16] MEDS: diazePAM 5 MG TABLET PO PRN (22:56)
[2019-03-17] MEDS: ACETAMINOPHEN 500 MG TAB PO SCH ×2 (00:17→09:08)
[2019-03-17] MEDS: OXYCODONE HCL IR 5 MG TAB (IMMEDIATE RELEASE) PO PRN ×2 (05:25→09:54)
--- NOTE | 2019-03-17 08:00 | Orthopedic Progress Note ---
Date of Service March 17, 2019 Assessment & Plan (1) Status post total right knee replacement: POD #2, Right TKA PT/ OT DVT proph- ASA D/C planning- Home w OPPT today. per medicine. Subjective POD #2, Doing well, denies SOB, CP, N/V. Pain controlled well. Having some leg pain, doppler ordered- NEG for DVT. Physical Exam Physical Exam: Right knee silverlon dressing c/d/i, no erythema. toes and ankle mobile. No calf tenderness, negative homans A&Ox3. Results & Data Vital Signs (Past 12 Hours) Vital Signs Temp Pulse Pulse Resp BP Pulse Ox 03/17/19 07:45 36.9 C 82 15 159/83 H 99 03/16/19 23:49 37.4 C 75 16 149/80 H 92 03/16/19 22:52 37.5 C 86 19 184/82 H 94 03/16/19 21:39 178/95 H 03/16/19 21:26 84 183/81 H 95 03/16/19 20:52 87 186/76 H 97
[2019-03-17] MEDS: diazePAM 5 MG TABLET PO PRN (08:35)
[2019-03-17] MEDS: DOCUSATE SODIUM 100 MG CAP PO SCH (09:09)
[2019-03-17] MEDS: CHOLECALCIFEROL 1,000 UNITS TAB PO SCH (09:09)
[2019-03-17] MEDS: METOPROLOL TARTRATE 50 MG TAB PO SCH (09:09)
[2019-03-17] MEDS: ASPIRIN 81 MG ECTAB PO SCH (09:09)
[2019-03-17] MEDS: CYANOCOBALAMIN 500 MCG TABLET (VITAMIN B-12) PO SCH (09:09)
[2019-03-17] MEDS: METFORMIN HCL 500 MG TAB PO SCH (09:09)
[2019-03-17] MEDS: MULTIVITAMIN TAB PO SCH (09:09)
[2019-03-17] MEDS: FERROUS GLUCONATE 324 MG TAB PO SCH (09:10)
[2019-03-17] MEDS: INSULIN ASPART 100 UNITS/ML 3 ML PEN SC SCH (09:15)
[2019-03-17] MEDS: INSULIN DETEMIR FLEXPEN/FLEX TOUCH 100 UNITS/ML 3ML SC SCH (09:15)
--- NOTE | 2019-03-26 22:32 | Discharge Summary ---
DATE OF ADMISSION: 03/15/2019 DATE OF DISCHARGE: 03/17/2019 DISCHARGE DIAGNOSIS: Right knee osteoarthritis. SECONDARY DIAGNOSES: Hypertension, hypercholesterolemia, diabetes mellitus with insulin dependence, anemia, osteoarthritis, neck pain, gastroesophageal reflux disease, history of renal calculi in the past. CONSULTS: Radha Subramanian PA-C/Mark Lacy DO COMPLICATIONS: None. PROCEDURES: Right total knee arthroplasty performed by Dr. Chambers on 03/15/2019. BRIEF HISTORY: As dictated in the history and physical. HOSPITAL SUMMARY: The patient was admitted on the above-noted date and had the above-noted surgery performed and she tolerated well. On the first postoperative day, patient was doing well. Denied shortness of breath, chest pain, nausea, vomiting. Pain was controlled. Knee dressings were clean, dry and intact. Toes and ankle were mobile. No calf tenderness. Vital signs were stable and she was afebrile. She was started on PT and OT protocols, DVT prophylaxis and pain management and continued planning for outpatient PT upon discharge from the hospital. By her second postoperative day, she was doing well and denied shortness of breath, chest pain, nausea, or vomiting. Pain was controlled. She was having some lower leg pain. Doppler was ordered and showed to be negative for DVT. The Silverlon dressing was clean, dry and intact. No erythema. Toes and neck were mobile. No calf tenderness. Negative Homans. Vital signs were stable. She was afebrile. She was progressing with her PT with range of motion of 52 degrees and she was ambulating 90 feet with a rolling walker. On her first trial and second trial showed 100 feet with a rolling walker. She has ascended and descended 5 stairs with 2 handrails. She was otherwise remaining stable and by 03/17/2019 was felt that she be discharged to home with outpatient PT. For further review, please see chart. LABORATORY AND X-RAY DATA: As per chart. DISCHARGE INSTRUCTIONS: The patient was discharged home in satisfactory condition on 03/17/2019. DIET: Diabetic. ACTIVITY: Weightbearing as tolerated on right lower extremity. Follow TK instruction sheets and special care instructions as noted. Follow up with Dr. Chambers in 2 weeks. The patient to call for appointment if one has not been made for you. DISCHARGE MEDICATIONS: Acetaminophen 1000 mg p.o. q.8 hours, aspirin 81 mg p.o. b.i.d., oxycodone 5 mg p.o. q.4 hours p.r.n. Resume home meds as listed and stop taking previous aspirin dosage and meloxicam.
== END 2019-03-17 11:55 | disposition home or self-care (01) | DRG 470 ==
LOC: ASU 06:18 → 3E 12:02

== ENCOUNTER 2023-02-15 05:05 | Observation (INO) ==
--- NOTE | 2023-02-04 10:46 | PAT Medication Instructions ---
Medication Instructions Date of Service February 04, 2023 Home Medications amitriptyline 50 mg tablet 50 mg PO QPM ztslaybtxl-utnkrfgpvipdu-tstfyczr 50 mg-300 mg-40 mg capsule (Fioricet) 1 cap PO UD PRN cholecalciferol (vitamin D3) 25 mcg (1,000 unit) capsule (Vitamin D3) 1,000 unit PO HS cinnamon bark 500 mg capsule (Cinnamon) 2,000 mg PO HS cranberry 400 mg capsule 1 dose PO HS cyanocobalamin (vitamin B-12) 1,000 mcg tablet (Vitamin B-12) 1,000 mcg PO QAM diphenhydramine HCl 25 mg capsule (Benadryl) 25 mg PO UD PRN ALLERGIES ferrous sulfate 325 mg (65 mg iron) tablet (iron) 325 mg PO QAM glucosamine-chondroitin 250 mg-200 mg tablet 2 tab PO QAM hydrochlorothiazide 12.5 mg capsule 12.5 mg PO QAM lactobacillus combination no.4 3 billion cell capsule (Probiotic) 1 tab PO HS metformin 1,000 mg tablet 1,000 mg PO BID metoprolol tartrate 50 mg tablet 50 mg PO BID milk thistle seed extract 140 mg capsule 140 mg PO HS multivitamin (Multiple Vitamins tablet) 1 tab PO QAM omeprazole 40 mg capsule,delayed release 40 mg PO QPM prasterone (dhea) 50 mg capsule (DHEA) 50 mg PO QAM rizatriptan 10 mg tablet (Maxalt) 1 dose PO UD PRN trazodone 50 mg tablet 50 mg PO HS turmeric 400 mg capsule 1 cap PO HS Vescepa 1 dose PO BID aspirin 81 mg tablet,delayed release 81 mg PO QPM empagliflozin 25 mg tablet (Jardiance) 25 mg PO QAM insulin glargine U-300 conc 300 unit/mL (3 mL) subcutaneous pen (Toujeo Max U- 300 SoloStar) 82 unit subcut HS ropinirole 4 mg tablet 4 mg PO HS rosuvastatin 10 mg tablet 10 mg PO QPM semaglutide 1 mg/dose (2 mg/1.5 mL) subcutaneous pen injector (Ozempic) 2 mg subcut WK tramadol 50 mg tablet 100 mg PO HS STOP 14 days before surgery Vescepa 1 dose PO BID STOP 3 days before surgery empagliflozin 25 mg tablet (Jardiance) 25 mg PO QAM Check if prescriber has christ-operative recommendations amitriptyline 50 mg tablet 50 mg PO QPM Continue as directed semaglutide 1 mg/dose (2 mg/1.5 mL) subcutaneous pen injector (Ozempic) 2 mg subcut WK drwoxnbuvt-sgwcwiwwgvuiv-nzzfqjnt 50 mg-300 mg-40 mg capsule (Fioricet) 1 cap PO UD PRN(if needed) rizatriptan 10 mg tablet (Maxalt) 1 dose PO UD PRN(if needed) STOP taking 2 weeks before surgery (or as soon as possible if surgery is within 2 weeks) cinnamon bark 500 mg capsule (Cinnamon) 2,000 mg PO HS cranberry 400 mg capsule 1 dose PO HS glucosamine-chondroitin 250 mg-200 mg tablet 2 tab PO QAM milk thistle seed extract 140 mg capsule 140 mg PO HS prasterone (dhea) 50 mg capsule (DHEA) 50 mg PO QAM turmeric 400 mg capsule 1 cap PO HS DO NOT take the morning of surgery cyanocobalamin (vitamin B-12) 1,000 mcg tablet (Vitamin B-12) 1,000 mcg PO QAM diphenhydramine HCl 25 mg capsule (Benadryl) 25 mg PO UD PRN ALLERGIES ferrous sulfate 325 mg (65 mg iron) tablet (iron) 325 mg PO QAM hydrochlorothiazide 12.5 mg capsule 12.5 mg PO QAM metformin 1,000 mg tablet 1,000 mg PO BID multivitamin (Multiple Vitamins tablet) 1 tab PO QAM Take morning of surgery With a small sip of water, OTHERWISE NOTHING TO EAT OR DRINK AFTER MIDNIGHT: metoprolol tartrate 50 mg tablet 50 mg PO BID Take evening before surgery insulin glargine U-300 conc 300 unit/mL (3 mL) subcutaneous pen (Toujeo Max U- 300 SoloStar) 82 unit subcut HS ropinirole 4 mg tablet 4 mg PO HS rosuvastatin 10 mg tablet 10 mg PO QPM cholecalciferol (vitamin D3) 25 mcg (1,000 unit) capsule (Vitamin D3) 1,000 unit PO HS lactobacillus combination no.4 3 billion cell capsule (Probiotic) 1 tab PO HS tramadol 50 mg tablet 100 mg PO HS metformin 1,000 mg tablet 1,000 mg PO BID metoprolol tartrate 50 mg tablet 50 mg PO BID omeprazole 40 mg capsule,delayed release 40 mg PO QPM trazodone 50 mg tablet 50 mg PO HS aspirin 81 mg tablet,delayed release 81 mg PO QPM (unless directed otherwise by surgeon) Other Notes If you have any questions please call us at [phone] or [phone] or [phone] or [phone]
--- NOTE | 2023-02-08 08:39 | Anesthesiology Consultation ---
Date of Service February 08, 2023 Assessment & Plan (1) Encounter for pre-operative examination: - Check BSG AM DOS - COVID screening: Per assessment on 02/08: No known COVID-19 positive contacts or current COVID-19 related symptoms. Travel screen negative. Patient vaccinated. At surgeon discretion if preop Covid testing being done. - Outpatient joint assessment: Pt currently scheduled for inpatient pathway. If surgeon requests review for outpatient joint pathway, patient is an acceptable candidate for outpatient joint program from anesthesia standpoint pending surgeon's office assessment that patient is motivated, has good support and completes Same Day Joint Program preop requirements. Addendum 02/12/23: Patient requiring admission post-operatively. Plan for recheck with COVID Darling AM DOS due to possibility that patient may have a roommate. OR aware. Darling order placed. Chart Review Chart Review: Acceptable Risk for Surgery and Patient seen in Pre Admission Testing Teaching & Discussion Pre-Anesthesia Teaching/Discussion Notes: Instructed NPO after midnight before surgery,except medications with 15 cc of water. Medication instructions provided according to the PAT guidelines. History Surgery Operation Date: 02/15/23 07:15 Proposed Procedures p Left Reverse Total Shoulder Arthroplasty - Adam Chambers MD Height/Weight Height: 5 ft 4.5 in Weight: 82.6 kg Allergies Allergy/AdvReac Type Severity Reaction Status Date / Time No Known Allergies Allergy Verified 02/15/23 05:42 Medications Home Medications Medication Instructions Recorded Confirmed Last Taken amitriptyline 50 mg tablet 50 mg PO QPM 01/10/19 02/15/23 02/14/23 19:30 [id number]-frtcsmrq 1 cap PO UD PRN migraines 01/10/19 02/15/23 02/14/23 21:00 50 mg-300 mg-40 mg capsule (Fioricet) cholecalciferol (vitamin D3) 25 1,000 unit PO HS 01/10/19 02/15/23 02/14/23 19:30 mcg (1,000 unit) capsule (Vitamin D3) cinnamon bark 500 mg capsule 2,000 mg PO HS 01/10/19 02/15/23 02/08/23 19:30 (Cinnamon) cranberry 400 mg capsule 1 dose PO HS 01/10/19 02/15/23 02/08/23 19:30 cyanocobalamin (vitamin B-12) 1,000 mcg PO QAM 01/10/19 02/15/23 02/08/23 19:30 1,000 mcg tablet (Vitamin B-12) diphenhydramine HCl 25 mg capsule 25 mg PO UD PRN ALLERGIES 01/10/19 02/15/23 03/14/19 19:00 (Benadryl) ferrous sulfate 325 mg (65 mg 325 mg PO QAM 01/10/19 02/15/23 02/14/23 09:00 iron) tablet (iron) glucosamine-chondroitin 250 mg-200 2 tab PO QAM 01/10/19 02/15/23 02/08/23 09:00 mg tablet hydrochlorothiazide 12.5 mg capsule 12.5 mg PO QAM 01/10/19 02/15/23 02/14/23 09:00 lactobacillus combination no.4 3 1 tab PO HS 01/10/19 02/15/23 02/14/23 19:30 billion cell capsule (Probiotic) metformin 1,000 mg tablet 1,000 mg PO BID 01/10/19 02/15/23 02/12/23 19:30 metoprolol tartrate 50 mg tablet 50 mg PO BID 01/10/19 02/15/23 02/15/23 03:30 milk thistle seed extract 140 mg 140 mg PO HS 01/10/19 02/15/23 02/08/23 19:30 capsule multivitamin (Multiple Vitamins 1 tab PO QAM 01/10/19 02/15/23 02/14/23 09:00 tablet) omeprazole 40 mg capsule,delayed 40 mg PO QPM 01/10/19 02/15/23 02/14/23 19:30 release prasterone (dhea) 50 mg capsule 50 mg PO QAM 01/10/19 02/15/23 02/08/23 09:00 (DHEA) rizatriptan 10 mg tablet (Maxalt) 1 dose PO UD PRN migraines 01/10/19 02/15/23 02/13/23 19:00 trazodone 50 mg tablet 50 mg PO HS 01/10/19 02/15/23 02/14/23 19:30 turmeric 400 mg capsule 1 cap PO HS 01/10/19 02/15/23 02/08/23 19:30 Vescepa 1 dose PO BID 02/03/23 02/15/23 02/08/23 19:30 aspirin 81 mg tablet,delayed 81 mg PO QPM 02/03/23 02/15/23 02/08/23 19:30 release empagliflozin 25 mg tablet 25 mg PO QAM 02/03/23 02/15/23 02/12/23 09:00 (Jardiance) insulin glargine U-300 conc 300 82 unit subcut HS 02/03/23 02/15/23 02/14/23 19:30 unit/mL (3 mL) subcutaneous pen (Toujeo Max U-300 SoloStar) ropinirole 4 mg tablet 4 mg PO HS 02/03/23 02/15/23 02/14/23 19:30 rosuvastatin 10 mg tablet 10 mg PO QPM 02/03/23 02/15/23 02/14/23 19:30 semaglutide 1 mg/dose (2 mg/1.5 2 mg subcut WK 02/03/23 02/15/23 02/09/23 10:00 mL) subcutaneous pen injector (Ozempic) tramadol 50 mg tablet 100 mg PO HS 02/03/23 02/15/23 02/14/23 19:30 Active Medications Generic Name Dose Route Start Last Admin Trade Name Celestino PRN Reason Stop Dose Admin Acetaminophen 1,000 mg 02/15/23 06:00 02/15/23 05:50 Acetaminophen 500 Mg Tab PO 02/15/23 18:00 1,000 mg PREOP YASSINE Administration Celecoxib 200 mg 02/15/23 06:00 02/15/23 05:50 Celebrex 200 Mg Cap PO 02/15/23 18:00 200 mg PREOP YASSINE Administration Famotidine 20 mg 02/15/23 06:00 02/15/23 05:50 Famotidine 20 Mg Tab PO 02/15/23 18:00 20 mg PREOP YASSINE Administration Gabapentin 300 mg 02/15/23 06:00 02/15/23 05:50 Gabapentin 300 Mg Cap PO 02/15/23 18:00 300 mg PREOP YASSINE Administration Lactated Ringer's 1,000 mls @ 15 mls/hr 02/15/23 06:00 02/15/23 06:15 Lr IV 02/16/23 05:59 15 mls/hr .Q24H YASSINE Administration Metoclopramide HCl 10 mg 02/15/23 06:00 02/15/23 05:50 Metoclopramide Hcl 10 Mg Tablet PO 02/15/23 18:00 10 mg PREOP YASSINE Administration Past Medical History Medical History Acid reflux Diabetes mellitus, type 2 GERD (gastroesophageal reflux disease) History of COVID-19 08/2021 > symptoms resolved History of diverticulitis surgical intervention (2008) History of kidney stones Hyperlipidemia Hypertension Iron deficiency anemia No hx blood transfusions Migraines Osteoarthritis Restless leg syndrome Exercise / Class Metabolic Activity II 4-5 Yardwork/Stairs/Walk up hill Past Family History Family History Grandmother Family history of breast cancer Other Family history of heart disease No family history of adverse response to anesthesia Past Surgical History Surgical History H/O vascular surgery RIGHT VEIN ABLATION History of 2 sections History of anesthesia reaction 1992- Epidural "did not take" with 1996- no issues History of cholecystectomy History of colon resection + APPENDECTOMY AND RIGHT OOPHERECTOMY History of colonoscopy History of endoscopy + ESOPHAGEAL STRETCHING History of hernia surgery History of tooth extraction History of total right knee replacement Past Anesthesia History No Family Hx of Anesthesia Complications and Other ( Epidural "did not take" with (1992) > no issues with subsequent (1996) ) History of PONV No Hx of PONV and No Hx of Motion Sickness Social History Smoking Status: Former smoker tobacco type: cigarettes Do You Dip or Chew Tobacco: No Smoking End Date: Quit 2003 Hx Alcohol Use: No Hx Substance Use: No substance use type: does not use Review of Systems Patient denies chest pain, shortness of breath, dyspnea on exertion, fever, chills, cough, wheezing, palpitations. Physical Exam Vital Signs Last Vital Signs Temp 36.9 C 02/15/23 05:30 Pulse 69 02/15/23 05:30 Resp 20 02/15/23 05:30 BP 148/85 H 02/15/23 05:30 Pulse Ox 97 02/15/23 05:30 O2 Del Method Room Air 02/15/23 05:30 VITALS BP 111/75 P 71 TEMP 98.4 SP02 96%RA RESP 16 PHYSICAL Full cervical extension range of motion. Full TMJ range of motion. TMD 3 finger breaths Mallampati Score 1 Dentition: several implants Lungs: clear throughout to auscultation Cardiac: regular rate and rhythm, no murmurs noted Spine: normal Carotid arteries: negative bruit Extremities: no LE edema Lab Results Anesthesia Preop Results Results Anesthesia Widget: WBC 7.39 K/ul (4.8-10.8) 02/08/23 Hgb 14.0 g/dl (12.0-16.0) 02/08/23 Hct 41.2 % (37.0-47.0) 02/08/23 Plt 342 K/uL (130-400) 02/08/23 Na 141 mmol/L (136-145) 02/08/23 K 3.8 mmol/L (3.5-5.1) 02/08/23 Cl 101 mmol/L (98-107) 02/08/23 CO2 30 mmol/L (21-32) 02/08/23 BUN 10 mg/dl (6-23) 02/08/23 Creat 0.61 mg/dl (0.6-1.2) 02/08/23 Glucose Level 118 mg/dl (70-99(Fasting)) H 02/08/23 POC Glucose 116 mg/dl (70-99) H 02/15/23 PT 10.4 Seconds (9.0-12.0) 02/08/23 PTT 28.4 Seconds (21.0-31.0) 02/08/23 INR 0.9 (0.9-1.1) 02/08/23 HA1c 6.3 % (4.5-5.6) H 02/08/23 Urine Color Yellow 02/08/23 Urine Appearance Clear (Clear) 02/08/23 Urine pH 5.0 (4.5-7.5) 02/08/23 Urine Specific [place] 1.036 (1.000-1.030) H 02/08/23 Urine Protein Negative (Negative) 02/08/23 Urine Glucose (UA) 3+ (Negative) H 02/08/23 Urine Ketones Negative (Negative) 02/08/23 Urine Blood Negative (Negative) 02/08/23 Urine Nitrite Negative (Negative) 02/08/23 Urine Bilirubin Negative (Negative) 02/08/23 Urine Urobilinogen Negative (Negative) 02/08/23 Urine Leukocyte Esterase Negative (Negative) 02/08/23 SARS-CoV-2, RNA, NAAT NEGATIVE (NEGATIVE) 02/15/23 Blood Type AB Negative 02/08/23 Antibody Screen NEGATIVE 02/08/23 Testing Laboratory Results 02/15/23 05:36 POC Glucose 116 H Electrocardiogram Date: 02/08/23 NSR at 67bpm. Chest X-Ray Date: 02/08/23 FINDINGS: Cardiomediastinal and hilar silhouettes are within normal limits. Atherosclerosis of the aorta. No pneumothorax, pleural effusion, airspace consolidation or pulmonary edema. Degenerative changes of the shoulders and spine. Right shoulder rotator cuff calcific tendinosis. Cholecystectomy. IMPRESSION: No acute process. COVID-19 Risk Screen Screening Information COVID-19 Screen Date: 02/08/23 Exposure 21 Days Family/Household +COVID Last 21 Days: No Exposure 10 Days Any COVID Exposure Last 10 Days: No Symptoms Last 10 Days Experienced COVID Sx Last 10 Days: No + COVID 0-90 Days COVID + in Last 0-90 Days: No
--- NOTE | 2023-02-14 14:22 | History & Physical Report ---
Date of Service February 14, 2023 Assessment & Plan (1) Rotator cuff arthropathy of left shoulder: Plan: Patient has a massive retracted rotator cuff tear. Treatment options discussed with the patient. She has failed conservative measures. Risks, benefits and alternatives to surgery including but not limited to infection, DVT, pain, stiffness, need for revision surgery, damage to blood vessels, damage to nerves, PE, , were discussed with the patient and they wish to proceed. Plan for left reverse total shoulder arthroplasty at [facility] with Dr. Chambers on February 15. All questions answered. Patient will follow up postop. History of Present Illness Chief Complaint: Left shoulder pain Primary Care Provider: George Leon 57-year-old female with past medical history significant for hypertension, high cholesterol, diabetes mellitus type 2 who presents with ongoing left shoulder pain. Pain is interfering with her daily activities. She has failed conservative measures and would like to proceed with surgical intervention. Patient denies headaches, sweats, fevers, chills, double vision, blurred vision, cough, sore throat, dysphagia, chest pain, sob, wheezing, n/v/d/c, numbness, tingling, fatigue, urinary symptoms, mood disorders. ROS positive for left shoulder pain and stiffness. Allergies Allergy/AdvReac Type Severity Reaction Status Date / Time No Known Allergies Allergy Verified 02/03/23 12:22 Home Medications Medication Instructions Recorded Confirmed Type amitriptyline 50 mg tablet 50 mg PO QPM 01/10/19 02/03/23 History [id number] 1 cap PO UD PRN migraines 01/10/19 02/03/23 History 50 mg-300 mg-40 mg capsule (Fioricet) cholecalciferol (vitamin D3) 25 1,000 unit PO HS 01/10/19 02/03/23 History mcg (1,000 unit) capsule (Vitamin D3) cinnamon bark 500 mg capsule 2,000 mg PO HS 01/10/19 02/03/23 History (Cinnamon) cranberry 400 mg capsule 1 dose PO HS 01/10/19 02/03/23 History cyanocobalamin (vitamin B-12) 1,000 mcg PO QAM 01/10/19 02/03/23 History 1,000 mcg tablet (Vitamin B-12) diphenhydramine HCl 25 mg capsule 25 mg PO UD PRN ALLERGIES 01/10/19 02/03/23 History (Benadryl) ferrous sulfate 325 mg (65 mg 325 mg PO QAM 01/10/19 02/03/23 History iron) tablet (iron) glucosamine-chondroitin 250 mg-200 2 tab PO QAM 01/10/19 02/03/23 History mg tablet hydrochlorothiazide 12.5 mg capsule 12.5 mg PO QAM 01/10/19 02/03/23 History lactobacillus combination no.4 3 1 tab PO HS 01/10/19 02/03/23 History billion cell capsule (Probiotic) metformin 1,000 mg tablet 1,000 mg PO BID 01/10/19 02/03/23 History metoprolol tartrate 50 mg tablet 50 mg PO BID 01/10/19 02/03/23 History milk thistle seed extract 140 mg 140 mg PO HS 01/10/19 02/03/23 History capsule multivitamin (Multiple Vitamins 1 tab PO QAM 01/10/19 02/03/23 History tablet) omeprazole 40 mg capsule,delayed 40 mg PO QPM 01/10/19 02/03/23 History release prasterone (dhea) 50 mg capsule 50 mg PO QAM 01/10/19 02/03/23 History (DHEA) rizatriptan 10 mg tablet (Maxalt) 1 dose PO UD PRN migraines 01/10/19 02/03/23 History trazodone 50 mg tablet 50 mg PO HS 01/10/19 02/03/23 History turmeric 400 mg capsule 1 cap PO HS 01/10/19 02/03/23 History Vescepa 1 dose PO BID 02/03/23 02/03/23 History aspirin 81 mg tablet,delayed 81 mg PO QPM 02/03/23 02/03/23 History release empagliflozin 25 mg tablet 25 mg PO QAM 02/03/23 02/03/23 History (Jardiance) insulin glargine U-300 conc 300 82 unit subcut HS 02/03/23 02/03/23 History unit/mL (3 mL) subcutaneous pen (Toujeo Max U-300 SoloStar) ropinirole 4 mg tablet 4 mg PO HS 02/03/23 02/03/23 History rosuvastatin 10 mg tablet 10 mg PO QPM 02/03/23 02/03/23 History semaglutide 1 mg/dose (2 mg/1.5 2 mg subcut WK 02/03/23 02/03/23 History mL) subcutaneous pen injector (Ozempic) tramadol 50 mg tablet 100 mg PO HS 02/03/23 02/03/23 History Past Med/Surg History Medical History Acid reflux Diabetes mellitus, type 2 GERD (gastroesophageal reflux disease) History of COVID-19 08/2021 > symptoms resolved History of diverticulitis surgical intervention (2008) History of kidney stones Hyperlipidemia Hypertension Iron deficiency anemia No hx blood transfusions Migraines Osteoarthritis Restless leg syndrome Surgical History H/O vascular surgery RIGHT VEIN ABLATION History of 2 sections History of anesthesia reaction 1992- Epidural "did not take" with 1996- no issues History of cholecystectomy History of colon resection + APPENDECTOMY AND RIGHT OOPHERECTOMY History of colonoscopy History of endoscopy + ESOPHAGEAL STRETCHING History of hernia surgery History of tooth extraction History of total right knee replacement Family History Grandmother Family history of breast cancer Other Family history of heart disease No family history of adverse response to anesthesia Social History Smoking Status: Former smoker Smoking End Date: Quit 2003; Second Hand Exposure: No; Do You Dip or Chew Tobacco: No; Hx Alcohol Use: No Hx Substance Use: No Preferred Language: Maltese Communication Ability: Effective Inspector Screen Printing Required: No Beliefs That Will Affect Care: None marital status: Life Partner Current Living Situation: Significant Other Feels Safe at Home: Yes Safety Concerns: Feels Safe At This Time Assistive Devices: Glasses Assistive Devices Comment: READING GLASSES Review of Systems All systems reviewed & are unremarkable except as noted in HPI & below Physical Exam Constitutional: well developed and well nourished; no acute distress Eyes: PERRL, conjunctivae normal, anicteric sclerae ENMT: external ear and nose normal, oropharynx normal Neck: trachea midline, no thyromegaly Respiratory: normal respiratory effort, lungs clear to auscultation Cardiovascular: RRR, no murmur, no edema Musculoskeletal: Left shoulder: Crepitation with range of motion. There is tenderness anterior lateral acromion. Positive impingement signs, positive belly press and [place]'s. Pain and weakness with strength testing. 2+/5 internal rotation, 2+/5 abduction, external rotation 3+/5. Range of motion painful in all directions. External rotation to 40 degrees, abduction to 90 degrees, forward flexion to 180 degrees. Skin: no rashes, warm and dry Neurologic: patellar DTR's 2+ bilat, sensation intact Psychiatric: A+Ox3, euthymic affect Results & Data Laboratory Results Left shoulder MRI demonstrates chronic rotator cuff tear with retraction and atrophy involving subscapularis, supraspinatus, infraspinatus. Dislocated biceps tendon. There is subchondral bony edema in the humeral head. Radiographs demonstrate maintained joint spaces glenohumeral joint. There is mild degenerative changes.
[2023-02-15] MEDS ORDERED: ACETAMINOPHEN 500 MG TAB PO SCH (06:00)
[2023-02-15] MEDS ORDERED: TRANEXAMIC ACID 1,000 MG **IV Intra-op IV SCH (06:00)
[2023-02-15] MEDS ORDERED: ceFAZolin 2000MG 2,000 MG/15 ML SYR IV SCH (06:00)
[2023-02-15] MEDS ORDERED: METOCLOPRAMIDE HCL 10 MG TABLET PO SCH (06:00)
[2023-02-15] MEDS ORDERED: TRANEXAMIC ACID 1,000 MG **IV Pre-op IV SCH (06:00)
[2023-02-15] MEDS ORDERED: FAMOTIDINE 20 MG TAB PO SCH (06:00)
[2023-02-15] MEDS ORDERED: LR 15ML/HR IV SCH (06:00)
[2023-02-15] MEDS ORDERED: CeleBREX 200 MG CAP PO SCH (06:00)
[2023-02-15] MEDS ORDERED: GABAPENTIN 300 MG CAP PO SCH (06:00)
[2023-02-15] MEDS ORDERED: LIDOCAINE 2% 2 ML VIAL/AMP(20MG/ML) INFIL ONE (06:32)
[2023-02-15] MEDS ORDERED: MIDAZOLAM HCL 1 MG/ML 2ML VIAL ONE (06:32)
[2023-02-15] MEDS ORDERED: PROPOFOL IV EMULSION 10 MG/ML 20 ML VIAL IV ONE (06:32)
[2023-02-15] MEDS ORDERED: ONDANSETRON INJ 2 MG/ML 2 ML VIAL ONE (06:32)
[2023-02-15] MEDS ORDERED: fentaNYL citrate PF 100 MCG/2 ML VIAL ONE (06:32)
[2023-02-15] MEDS ORDERED: DEXAMETHASONE SOD INJ 4 MG/ML VIAL ONE (06:32)
[2023-02-15] MEDS ORDERED: BUPIVACAINE 0.5 % 5 MG/1 ML PF 10ML VIAL ONE (06:33)
[2023-02-15] MEDS ORDERED: HYDROmorphone INJ 1 MG/ML SYRINGE IV PRN (06:41)
[2023-02-15] MEDS ORDERED: fentaNYL citrate PF 100 MCG/2 ML VIAL IV PRN (06:41)
[2023-02-15] MEDS ORDERED: ATROPINE SULFATE 0.1 MG/ML 10ML SYR IV PRN (06:41)
[2023-02-15] MEDS ORDERED: ePHEDrine sulfate 50 MG/ML AMP IV PRN (06:41)
[2023-02-15] MEDS ORDERED: ONDANSETRON INJ 2 MG/ML 2 ML VIAL IV PRN ×2 (06:41→10:44)
--- NOTE | 2023-02-15 07:11 | History & Physical Bridge Note ---
Date of Service February 15, 2023 History & Physical Bridge Note I have examined the patient, reviewed the History & Physical and in the interval since the performance of the History & Physical I have noted the following changes of clinical significance: no changes noted
[2023-02-15] MEDS ORDERED: PHENYLEPHRINE 100MCG/ML 5ML SYR ONE (07:51)
[2023-02-15] MEDS ORDERED: ePHEDrine sulfate 50 MG/ML AMP ONE (07:51)
--- NOTE | 2023-02-15 09:52 | Operative Report ---
Post Operative Report Pre & Post Diagnosis Operation Date: 02/15/23 07:15 Pre-Op Diagnosis: Rotator cuff arthropathy of left shoulder, massive rotator cuff tear, biceps dislocation Post-Op Diagnosis: Rotator cuff arthropathy of left shoulder, massive rotator cuff tear, biceps dislocation I identified the patient and participated in the time-out.: Yes Procedure Operation Date: 02/15/23 07:15 Actual Procedures p Left Reverse Total Shoulder Arthroplasty, bicep tendonesis(Left) - Adam Chambers MD Surgeon Adam Chambers MD [employer] Eloy DUNN Estimated Blood Loss 30 Findings Consistent with Post-Op Diagnosis Specimens Humeral head Drains 2 Hemovac Anesthesia Type General Regional Complications none Disposition Disposition: Recovery Room Indications 57-year-old female with massive retracted rotator cuff tear weakness pain instability of the shoulder and dislocated biceps tendon. Description of Procedure The patient was taken to the operating room and anesthetized under regional block and general anesthetic. The patient was positioned on the operating table in a 30 beach chair position with a towel roll under the medial border of the left scapula. The arm was draped free to be able to manipulate the shoulder as needed. The left upper extremity was prepped and draped in usual sterile fashion. Exam demonstrated anterior shoulder instability range of motion 140 degrees flexion, 100 degrees abduction, 45 degrees external rotation. An anterior deltopectoral approach was performed. A longitudinal incision was made in the deltopectoral interval. The skin was incised sharply. Subcutaneous flaps were elevated off the fascia. The cephalic vein was dissected out and retracted lateral with the deltoid. The clavipectoral fascia was divided at the lateral margin of the conjoined tendon and extended up to the CA ligament. The following findings were noted: The subscapularis tendon was retracted medial to the conjoined tendon was totally torn. There is a small amount of inferior capsule still remaining only. Biceps tendon was dislocated anteriorly. There was minimal osteoarthritis in the glenohumeral joint. There was chronic scarred subacromial bursa and scarred bursa over the subscapularis tendon. The rotator cuff tear extended with complete tears of the supraspinatus and infraspinatus with retraction with only teres minor remaining.. The upper centimeter of the pectoralis was released for inferior exposure. A self-retaining retractor was placed. the biceps tendon was tenodesed to the pectoralis tendon with #2 FiberWire. The proximal biceps was resected. The subscapular muscle fibers were split longitudinally at the level of the circumflex vessels. The circumflex vessels were identified and tied off with silk ties and divided laterally. Incision was made from the bicipital groove down vertically through the residual capsule staying on bone and a subperiosteal dissection was performed freeing the capsule off the inferior humerus. A Martinez elevator was used to assist in releasing the capsule of the neck of the humerus. A Fukuda retractor was placed into the joint retracting the humeral head posterior. Glenoid findings demonstrated minimal inferior chondromalacia intact cartilage still. There was a very petite small glenoid. The labrum and biceps tendon was resected. an anterior-inferior and posterior inferior capsular release were performed with electrocautery and a Martinez elevator on bone. Attention was then taken to the humeral preparation. The cutting guide was placed into the humeral head. It was positioned at 30 of retroversion. Oscillating saw was used to resect the humeral head giving the cut above the level of the posterior rotator cuff insertion site. The humerus was then prepared for the stem. I used the ascend flex stem from [employer]. The sizing broaches were used followed by trial broaches up to a size 2 which had the appropriate fit and fill. The appropriate sized cut protector was placed. The humerus was then retracted posterior to the glenoid. The glenoid was sized for a 25. The guide for the baseplate was positioned in a 10 inferior tilt and the central drill hole was made. The reamer for the 25 baseplate was used. Bone was very hard and sclerotic. The central drill was widened for the peg. The 25 mm hydroxyapatite-coated standard post aequalis baseplate was impacted into position. The base plate was transfixed with superior and inferior locking screws and anterior and posterior compression screws with stable fixation. The fan reamer was used for the 36 millimeter glenoid sphere. After irrigation the 36 mm symmetrical glenoid sphere was impacted onto the baseplate and the security screw was tightened. Attention was taken back to the humerus. The cut protector was removed and the plus or high offset humeral tray trial was assembled to the trial stem rotated appropriately to get bony coverage and then screwed in position. There was overhang due to the very small size of the humerus. A trial reduction was performed. Despite putting a +6, 36 reversed trial insert I could not reduce the implant due to soft tissue tightness. I reexposed the proximal humerus remove the implant took 3 more millimeters of bone off with an oscillating saw we broached the canal but since we had to set the implant deeper I only could use a broach for a standard size 1 implant. Plus or high offset tray was placed again and the +6, 36 reversed trial insert. I was able to successfully reduce this and this demonstrated good stability and no shuck. The trials were removed. The subscapularis and capsule were non repairable. The canal was irrigated with pulsed saline solution. The final component was assembled. The final component was +6, 36 reversed insert assembled to +0 high offset tray and the standard size 1 ascend flex PTC stem. I placed some bone graft around the implant prior to fully impacting it and this was then impacted into the humerus with a tight press-fit. It was reduced to the glenoid sphere. Shoulder was stable through full range of motion. The pectoralis was repaired with #2 FiberWire [id number] sutures reinforcing the biceps tendon tenodesis. The arm was taken through a range of motion which demonstrated 150 degrees forward flexion 100 degrees AB duction 45 degrees external rotation and internal rotation. The implant was stable through the range of motion tested. The wound was copiously irrigated. 2 Hemovac drains were placed. The deltopectoral interval was closed with [id number] #1 Vicryl sutures. The subcutaneous tissues were closed with 2-0 Vicryl sutures. The skin was closed with clarissa. Sterile dressings were applied and a shoulder immobilizer. Jorge Luis DUNN, my physician wet process miller head assistant, acted as language assistant throughout the procedure .He performed functions including patient positioning, arm positioning, prepping and draping, soft tissue retraction, instrument management, suture management and performed the subcutaneous and skin closure and will participate in the postoperative care of the patient. I attest to the content of the Intraoperative Record and any orders documented therein. Any exceptions are noted below.
--- NOTE | 2023-02-15 10:33 | XRay Report ---
XR shoulder LT min 2V routine HISTORY: 57 years-old Female Post shoulder surgery left shoulder arthroplasty COMPARISON: Chest radiograph 02/08/2023 TECHNIQUE: 2 views of the left shoulder FINDINGS: Reverse total joint arthroplasty of the shoulder. Satisfactory alignment without acute fracture, disl ocation or unexpected opaque foreign body. Overlying skin clarissa are present along with expected pos toperative soft tissue swelling and deep tissue air with surgical drainage catheter. IMPRESSION: Reverse total joint arthroplasty with expected postoperative changes. ACT 112: Negative or not required by law. The above report was generated using voice recognition software. It may contain grammatical, syntax o r spelling errors. Electronically signed by: Isidro Starr M.D. 02/15/2023 10:31 AM
[2023-02-15] MEDS ORDERED: MAGNESIUM HYDROXIDE SUSP 30 ML UDC PO PRN (10:44)
[2023-02-15] MEDS ORDERED: METOCLOPRAMIDE HCL INJ 5 MG/ML 2 ML VIAL IV PRN (10:44)
[2023-02-15] MEDS ORDERED: NALOXONE HCL 0.4 MG/1 ML VIAL/CARP IV PRN (10:44)
[2023-02-15] MEDS ORDERED: PHARMACY GLYCEMIC MGMT CONSULT PRN (10:44)
[2023-02-15] MEDS ORDERED: RIZATRIPTAN BENZOATE 10 MG TAB PO PRN (10:44)
[2023-02-15] MEDS ORDERED: bisacodyL 10 MG SUPP PR PRN (10:44)
[2023-02-15] MEDS ORDERED: HYDROmorphone INJ 0.5 MG/0.5 ML SYR IV PRN (10:44)
[2023-02-15] MEDS: SODIUM CHLORIDE 0.9% 1000ML 1,000 ML IV SCH ×2 (11:12→20:57)
[2023-02-15] MEDS ORDERED: DEXTROSE 50% 50 ML SYRINGE IV PRN (11:30)
[2023-02-15] MEDS ORDERED: GLUCAGON FOR INJ 1 MG VIAL IM PRN (11:30)
[2023-02-15] MEDS ORDERED: GLUCOSE 40% GEL 15 GM TUBE PO PRN (11:30)
[2023-02-15] MEDS ORDERED: GLUCOSE 10 TAB/TUBE PO PRN (11:30)
[2023-02-15] MEDS ORDERED: CARBOHYDRATES FOR HYPOGLYCEMIA PO PRN (11:30)
[2023-02-15] MEDS: INSULIN ASPART PER UNIT CHARGE SC SCH ×3 (12:30→20:43)
--- NOTE | 2023-02-15 13:06 | Pharmacy Report ---
Pharmacy Glycemic Short Note 2 - Date of Service February 15, 2023 - Glycemic Short BSG Results (Last 24 hours): 02/15/23 02/15/23 02/15/23 05:36 09:48 11:56 POC Glucose 116 H 131 H 129 H OUTPATIENT ANTIDIABETIC REGIMEN: * Toujeo 82 units daily @ 1930 * Ozempic 2 mg SQ weekly on Tuesdays (last dose 02/09/23 - will take tomorrow 02/16/23) * metformin 1 gm PO BID * Jardiance 25 mg PO qAM * HbA1C = 6.3% (02/08/23) ASSESSMENT: * Ms Black is a 57 y/o F with a PMH of T2DM who presents for shoulder surgery. She is POD 0 - she received dexamethasone 8 mg during surgery. * This pharmacist spoke with the patient after surgery. The patient took Toujeo 82 units evening prior to surgery. She denies hypoglycemia. Toujeo dose has been decreased over time from ~94 units to 82 units. * Patients preop BSG was 116 mg/dL and postop was 129 mg/dL. * Since patient received steroids, will use weight-based stress of 3 Novolog. Will utilize slightly tighter carbohydrate ratio due to high insulin requirement at home + both home oral medications will be on hold. * Will have a scale for tonight. Typically when transition from Toujeo to Lantus, the first dose is reduced by 20%. Will have this dose available for BSGs < 150 mg/dL and regular dose for higher BSGs. PLAN FOR INPATIENT GLYCEMIC CONTROL: * Hold outpatient oral diabetes medications * Basal insulin * Lantus 65 units SQ daily @ 1930 (80 units if BSG > 150 mg/dL) * Bolus insulin * NovoLog per scale ACHS or Q6hrs while NPO * Goal Range: Low 110 mg/dL - High 140 mg/dL * Correction Factor: 20 mg/dL/unit * Nutritional / Prandial insulin per carb ratio of 1 unit per 5 grams CHO consumed
[2023-02-15] MEDS: ACETAMINOPHEN 500 MG TAB PO SCH ×2 (13:50→20:35)
--- NOTE | 2023-02-15 15:18 | Anesthesiology Progress Note ---
Date of Service February 15, 2023 Anesthesia Post Procedure Vital Signs Vital Signs: Temp Pulse Pulse Pulse Resp BP Pulse Ox 02/15/23 13:47 36.6 C 90 16 118/65 94 02/15/23 12:56 36.8 C 92 H 18 129/78 96 02/15/23 11:53 83 16 129/74 97 02/15/23 11:14 36.8 C 83 18 128/75 95 02/15/23 10:44 37.3 C 81 18 129/75 95 02/15/23 10:00 88 18 146/86 H 98 02/15/23 10:20 36.6 C 85 18 137/80 95 02/15/23 10:10 84 20 136/75 94 02/15/23 09:50 86 20 147/75 H 98 02/15/23 09:47 36.0 C L 87 18 161/75 H 98 02/15/23 05:30 36.9 C 69 20 148/85 H 97 O2 Del Method O2 Flow Rate 02/15/23 13:47 Room Air 02/15/23 12:56 Room Air 02/15/23 11:53 Room Air 02/15/23 11:14 Room Air 02/15/23 10:44 Room Air 02/15/23 10:00 Oxymask 3 02/15/23 10:20 Room Air 02/15/23 10:10 Room Air 02/15/23 09:50 Oxymask 6 02/15/23 09:47 Oxymask 6 02/15/23 05:30 Room Air Transfer of Care Handoff Completed per policy Notes Mental Status: alert / awake / arousable and participated in evaluation Patient Amnestic to Procedure: Yes Nausea / Vomiting: adequately controlled Pain: adequately controlled Airway Patency, RR, SpO2: stable & adequate BP & HR: stable & adequate Hydration State: stable & adequate Anesthetic Complications: no major complications apparent and Pt Satisfied with anesthetic care
[2023-02-15] MEDS: ceFAZolin 2000MG 2,000 MG/15 ML SYR IV SCH (15:51)
[2023-02-15] MEDS ORDERED: LANTUS PER UNIT CHARGE SC SCH (19:30)
[2023-02-15] MEDS: oxyCODONE HCL IR 5 MG TAB (IMMEDIATE RELEASE) PO PRN (19:33)
[2023-02-15] MEDS: METOPROLOL TARTRATE 50 MG TAB PO SCH (20:31)
[2023-02-15] MEDS: DOCUSATE SODIUM 100 MG CAP PO SCH (20:33)
[2023-02-15] MEDS ORDERED: ROSUVASTATIN CALCIUM 10 MG TAB PO SCH (21:00)
[2023-02-15] MEDS ORDERED: traZODone HCL 50 MG TAB PO SCH (21:00)
[2023-02-15] MEDS ORDERED: rOPINIRole HCL 2 MG TABLET PO SCH (21:00)
[2023-02-15] MEDS ORDERED: SENNA 8.6 MG TAB PO SCH (21:00)
[2023-02-15] MEDS ORDERED: AMITRIPTYLINE HCL 50 MG TAB PO SCH (21:00)
[2023-02-15] MEDS ORDERED: PANTOprazole 40 MG TAB PO SCH (21:00)
[2023-02-15] MEDS ORDERED: CHOLECALCIFEROL 1,000 UNITS 25 MCG TAB PO SCH (21:00)
[2023-02-16] MEDS: oxyCODONE HCL IR 5 MG TAB (IMMEDIATE RELEASE) PO PRN ×3 (00:31→09:51)
[2023-02-16] MEDS: ceFAZolin 2000MG 2,000 MG/15 ML SYR IV SCH (00:52)
[2023-02-16] MEDS: ACETAMINOPHEN 500 MG TAB PO SCH (05:34)
[2023-02-16 06:38] LABS: Basophils # (auto) 0.04 K/uL (0-0.2); Basophils % (auto) 0.4 %; Eosinophils # (auto) 0.07 K/uL (0-0.50); Eosinophils % (auto) 0.7 %; Hematocrit (blood only) 37.1 % (37.0-47.0); Hemoglobin 12.6 g/dl (12.0-16.0); Immature Granulocytes # (auto) 0.02 K/uL (0.01-0.20); Immature Granulocytes % (auto) 0.2 %; Lymphocytes # (auto) 3.62 K/uL (1.2-3.4); Mean Corpuscular Hemoglobin 31.7 pg (25.0-34.0); Mean Corpuscular Volume 93.2 fL (80.0-100.0); Mean Platelet Volume 8.5 fL (9.4-12.4); Monocytes # (auto) 0.86 K/uL (0.11-0.59); Monocytes % (auto) 8.8 %; Neutrophils # (auto) 5.17 K/uL (1.40-6.50); Neutrophils % (auto) 52.9 %; Platelet Count 267 K/uL (130-400); RDW Standard Deviation 41.1 fL (36.4-46.3); Red Blood Count 3.98 M/uL (4.20-5.40); White Blood Count 9.78 K/ul (4.8-10.8)
[2023-02-16 06:59] LABS: Calcium 9.1 mg/dl (8.6-10.3); Creatinine Clr Calc Pharmacy 106.8 ml/min; Est GFR (African American) 116.3 ml/min; Est GFR (Non-African American) 100.3 ml/min; Potassium 3.5 mmol/L (3.5-5.1)
--- NOTE | 2023-02-16 07:04 | Orthopedic Progress Note ---
Date of Service February 16, 2023 Assessment & Plan (1) Rotator cuff arthropathy of left shoulder: Plan: Postop day 1 status post left reverse total shoulder arthroplasty PT/OT protocols. Nonweightbearing left upper extremity. DVT prophylaxis-aspirin p.o. daily, SCDs. Pain management as written. DC planning-patient is planning for outpatient therapy in the future upon discharge. Plan for discharge to home today. Admission and Anticipated Discharge Date Admission Date: February 15, 2023 Subjective Postop day 1 Patient sitting up in bed awake and alert. Stating that she her block is starting to wear off but she continues to remain comfortable. Pain is controlled. No complaints this morning. Physical Exam Physical Exam: Dressings are clean, dry, and intact. Sling is in place. She is starting to move her fingers flexion extension as well as her wrist. 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 Capillary refill is less than 2 seconds. Results & Data Vital Signs (Past 12 Hours) Vital Signs Temp Pulse Resp BP BP Pulse Ox O2 Del Method 02/16/23 06:40 36.6 C 77 20 112/67 94 Room Air 02/16/23 03:46 36.7 C 75 16 123/72 96 Room Air 02/15/23 23:28 36.7 C 74 18 128/71 96 Room Air 02/15/23 20:24 37.5 C 94 H 18 132/71 97 Room Air Laboratory Results Laboratory Results WBC 9.78 K/ul (4.8-10.8) 02/16/23 06:15 RBC 3.98 M/uL (4.20-5.40) L 02/16/23 06:15 Hgb 12.6 g/dl (12.0-16.0) 02/16/23 06:15 Hct 37.1 % (37.0-47.0) 02/16/23 06:15 MCV 93.2 fL (80.0-100.0) 02/16/23 06:15 MCH 31.7 pg (25.0-34.0) 02/16/23 06:15 MCHC 34.0 g/dL (32.0-36.0) 02/16/23 06:15 RDW Std Deviation 41.1 fL (36.4-46.3) 02/16/23 06:15 RDW Coeff of Toshia 12.0 % (11.5-14.5) 02/16/23 06:15 Plt Count 267 K/uL (130-400) 02/16/23 06:15 MPV 8.5 fL (9.4-12.4) L 02/16/23 06:15 Immature Gran % (Auto) 0.2 % 02/16/23 06:15 Neut % (Auto) 52.9 % 02/16/23 06:15 Lymph % (Auto) 37.0 % 02/16/23 06:15 Baldwin % (Auto) 8.8 % 02/16/23 06:15 Eos % (Auto) 0.7 % 02/16/23 06:15 Baso % (Auto) 0.4 % 02/16/23 06:15 Neut # (Auto) 5.17 K/uL (1.40-6.50) 02/16/23 06:15 Lymph # (Auto) 3.62 K/uL (1.2-3.4) H 02/16/23 06:15 Baldwin # (Auto) 0.86 K/uL (0.11-0.59) H 02/16/23 06:15 Eos # (Auto) 0.07 K/uL (0-0.50) 02/16/23 06:15 Baso # (Auto) 0.04 K/uL (0-0.2) 02/16/23 06:15 Immature Gran # (Auto) 0.02 K/uL (0.01-0.20) 02/16/23 06:15 Sodium 140 mmol/L (136-145) 02/16/23 06:15 Potassium 3.5 mmol/L (3.5-5.1) 02/16/23 06:15 Chloride 105 mmol/L (98-107) 02/16/23 06:15 Carbon Dioxide 27 mmol/L (21-32) 02/16/23 06:15 Anion Gap 8 (3-11) 02/16/23 06:15 BUN 13 mg/dl (6-23) 02/16/23 06:15 Creatinine 0.59 mg/dl (0.6-1.2) L 02/16/23 06:15 Est Cr Clr Drug Dosing 106.8 ml/min 02/16/23 06:15 Est GFR ( Amer) 116.3 ml/min 02/16/23 06:15 Est GFR (Non-Af Amer) 100.3 ml/min 02/16/23 06:15 BUN/Creatinine Ratio 22.0 (10-20) H 02/16/23 06:15 Glucose 150 mg/dl (70-99(Fasting)) H 02/16/23 06:15 POC Glucose 150 mg/dl (70-99) H 02/16/23 06:37 Calcium 9.1 mg/dl (8.6-10.3) 02/16/23 06:15 SARS-CoV-2, RNA, NAAT NEGATIVE (NEGATIVE) 02/15/23 05:20 Impressions Shoulder X-Ray 02/15/23 09:50 XR shoulder LT min 2V routine HISTORY: 57 years-old Female Post shoulder surgery left shoulder arthroplasty COMPARISON: Chest radiograph 02/08/2023 TECHNIQUE: 2 views of the left shoulder FINDINGS: Reverse total joint arthroplasty of the shoulder. Satisfactory alignment without acute fracture, dislocation or unexpected opaque foreign body. Overlying skin clarissa are present along with expected postoperative soft tissue swelling and deep tissue air with surgical drainage catheter. IMPRESSION: Reverse total joint arthroplasty with expected postoperative changes. ACT 112: Negative or not required by law. The above report was generated using voice recognition software. It may contain grammatical, syntax or spelling errors. Electronically signed by: Isidro Starr M.D. 02/15/2023 10:31 AM
[2023-02-16] MEDS: INSULIN ASPART PER UNIT CHARGE SC SCH (08:28)
[2023-02-16] MEDS: DOCUSATE SODIUM 100 MG CAP PO SCH (08:28)
[2023-02-16] MEDS: METOPROLOL TARTRATE 50 MG TAB PO SCH (08:28)
[2023-02-16] MEDS ORDERED: hydroCHLOROthiazide 25 MG TAB PO SCH (09:00)
[2023-02-16] MEDS ORDERED: CYANOCOBALAMIN (B-12) 500 MCG TABLET PO SCH (09:00)
[2023-02-16] MEDS ORDERED: FERROUS SULFATE 325 MG TAB PO SCH (09:00)
[2023-02-16] MEDS ORDERED: MULTIVITAMIN TAB PO SCH (09:00)
[2023-02-16] MEDS ORDERED: NON-FORMULARY MEDICATION (Multivitamin [Multiple Vitamins] Tablet) PO SCH (09:00)
[2023-02-16] MEDS ORDERED: ASPIRIN 81 MG ECTAB PO SCH (21:00)
--- NOTE | 2023-02-18 14:53 | Discharge Summary ---
Date of Service February 18, 2023 Admission HPI Per Admitting Provider 57-year-old female with past medical history significant for hypertension, high cholesterol, diabetes mellitus type 2 who presents with ongoing left shoulder pain. Pain is interfering with her daily activities. She has failed conservative measures and would like to proceed with surgical intervention. Patient denies headaches, sweats, fevers, chills, double vision, blurred vision, cough, sore throat, dysphagia, chest pain, sob, wheezing, n/v/d/c, numbness, tingling, fatigue, urinary symptoms, mood disorders. ROS positive for left shoulder pain and stiffness. Admission Exam Per Admitting Provider Constitutional: well developed and well nourished; no acute distress Eyes: PERRL, conjunctivae normal, anicteric sclerae ENMT: external ear and nose normal, oropharynx normal Neck: trachea midline, no thyromegaly Respiratory: normal respiratory effort, lungs clear to auscultation Cardiovascular: RRR, no murmur, no edema Musculoskeletal: Left shoulder: Crepitation with range of motion. There is tenderness anterior lateral acromion. Positive impingement signs, positive belly press and Milan's. Pain and weakness with strength testing. 2+/5 internal rotation, 2+/5 abduction, external rotation 3+/5. Range of motion painful in all directions. External rotation to 40 degrees, abduction to 90 degrees, forward flexion to 180 degrees. Skin: no rashes, warm and dry Neurologic: patellar DTR's 2+ bilat, sensation intact Psychiatric: A+Ox3, euthymic affect Principal Diagnosis Left shoulder rotator cuff arthropathy Discharge Exam Dressings are clean, dry, and intact. Sling is in place. She is starting to move her fingers flexion extension as well as her wrist. 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 Capillary refill is less than 2 seconds. Discharge Data Allergies Allergy/AdvReac Type Severity Reaction Status Date / Time No Known Allergies Allergy Verified 02/15/23 05:42 Procedures Performed Operation Date: 02/15/23 07:15 Actual Procedures p Left Reverse Total Shoulder Arthroplasty, bicep tendonesis(Left) - Adam Chambers MD Ordered Studies 02/15/23 05:00 US - OR guided needle placemen Routine Hospital Course (1) Rotator cuff arthropathy of left shoulder: Postop day 1 status post left reverse total shoulder arthroplasty PT/OT protocols. Nonweightbearing left upper extremity. DVT prophylaxis-aspirin p.o. daily, SCDs. Pain management as written. DC planning-patient is planning for outpatient therapy in the future upon discharge. Plan for discharge to home today. Lab Results 02/15/23 02/15/23 02/15/23 Range/Units 05:20 05:36 09:48 WBC (4.8-10.8) K/ul RBC (4.20-5.40) M/uL Hgb (12.0-16.0) g/dl Hct (37.0-47.0) % MCV (80.0-100.0) fL MCH (25.0-34.0) pg MCHC (32.0-36.0) g/dL RDW Std Deviation (36.4-46.3) fL RDW Coeff of Toshia (11.5-14.5) % Plt Count (130-400) K/uL MPV (9.4-12.4) fL Immature Gran % (Auto) % Neut % (Auto) % Lymph % (Auto) % Maverick % (Auto) % Eos % (Auto) % Baso % (Auto) % Neut # (Auto) (1.40-6.50) K/uL Lymph # (Auto) (1.2-3.4) K/uL Maverick # (Auto) (0.11-0.59) K/uL Eos # (Auto) (0-0.50) K/uL Baso # (Auto) (0-0.2) K/uL Immature Gran # (Auto) (0.01-0.20) K/uL Sodium (136-145) mmol/L Potassium (3.5-5.1) mmol/L Chloride (98-107) mmol/L Carbon Dioxide (21-32) mmol/L Anion Gap (3-11) BUN (6-23) mg/dl Creatinine (0.6-1.2) mg/dl Est Cr Clr Drug Dosing ml/min Est GFR ( Amer) ml/min Est GFR (Non-Af Amer) ml/min BUN/Creatinine Ratio (10-20) Glucose (70-99(Fasting)) mg/dl POC Glucose 116 H 131 H (70-99) mg/dl Calcium (8.6-10.3) mg/dl Hepatitis C Ab (EIA) (NON-REACTIVE) Hep C Ab Signal/Cutoff (<1.00) SARS-CoV-2, RNA, NAAT NEGATIVE (NEGATIVE) 02/15/23 02/15/23 02/15/23 Range/Units 11:56 16:44 20:28 WBC (4.8-10.8) K/ul RBC (4.20-5.40) M/uL Hgb (12.0-16.0) g/dl Hct (37.0-47.0) % MCV (80.0-100.0) fL MCH (25.0-34.0) pg MCHC (32.0-36.0) g/dL RDW Std Deviation (36.4-46.3) fL RDW Coeff of Toshia (11.5-14.5) % Plt Count (130-400) K/uL MPV (9.4-12.4) fL Immature Gran % (Auto) % Neut % (Auto) % Lymph % (Auto) % Maverick % (Auto) % Eos % (Auto) % Baso % (Auto) % Neut # (Auto) (1.40-6.50) K/uL Lymph # (Auto) (1.2-3.4) K/uL Maverick # (Auto) (0.11-0.59) K/uL Eos # (Auto) (0-0.50) K/uL Baso # (Auto) (0-0.2) K/uL Immature Gran # (Auto) (0.01-0.20) K/uL Sodium (136-145) mmol/L Potassium (3.5-5.1) mmol/L Chloride (98-107) mmol/L Carbon Dioxide (21-32) mmol/L Anion Gap (3-11) BUN (6-23) mg/dl Creatinine (0.6-1.2) mg/dl Est Cr Clr Drug Dosing ml/min Est GFR ( Amer) ml/min Est GFR (Non-Af Amer) ml/min BUN/Creatinine Ratio (10-20) Glucose (70-99(Fasting)) mg/dl POC Glucose 129 H 116 H 128 H (70-99) mg/dl Calcium (8.6-10.3) mg/dl Hepatitis C Ab (EIA) (NON-REACTIVE) Hep C Ab Signal/Cutoff (<1.00) SARS-CoV-2, RNA, NAAT (NEGATIVE) 02/16/23 02/16/23 02/16/23 Range/Units 00:43 06:15 06:15 WBC 9.78 (4.8-10.8) K/ul RBC 3.98 L (4.20-5.40) M/uL Hgb 12.6 (12.0-16.0) g/dl Hct 37.1 (37.0-47.0) % MCV 93.2 (80.0-100.0) fL MCH 31.7 (25.0-34.0) pg MCHC 34.0 (32.0-36.0) g/dL RDW Std Deviation 41.1 (36.4-46.3) fL RDW Coeff of Toshia 12.0 (11.5-14.5) % Plt Count 267 (130-400) K/uL MPV 8.5 L (9.4-12.4) fL Immature Gran % (Auto) 0.2 % Neut % (Auto) 52.9 % Lymph % (Auto) 37.0 % Maverick % (Auto) 8.8 % Eos % (Auto) 0.7 % Baso % (Auto) 0.4 % Neut # (Auto) 5.17 (1.40-6.50) K/uL Lymph # (Auto) 3.62 H (1.2-3.4) K/uL Maverick # (Auto) 0.86 H (0.11-0.59) K/uL Eos # (Auto) 0.07 (0-0.50) K/uL Baso # (Auto) 0.04 (0-0.2) K/uL Immature Gran # (Auto) 0.02 (0.01-0.20) K/uL Sodium 140 (136-145) mmol/L Potassium 3.5 (3.5-5.1) mmol/L Chloride 105 (98-107) mmol/L Carbon Dioxide 27 (21-32) mmol/L Anion Gap 8 (3-11) BUN 13 (6-23) mg/dl Creatinine 0.59 L (0.6-1.2) mg/dl Est Cr Clr Drug Dosing 106.8 ml/min Est GFR ( Amer) 116.3 ml/min Est GFR (Non-Af Amer) 100.3 ml/min BUN/Creatinine Ratio 22.0 H (10-20) Glucose 150 H (70-99(Fasting)) mg/dl POC Glucose 105 H (70-99) mg/dl Calcium 9.1 (8.6-10.3) mg/dl Hepatitis C Ab (EIA) (NON-REACTIVE) Hep C Ab Signal/Cutoff (<1.00) SARS-CoV-2, RNA, NAAT (NEGATIVE) 02/16/23 02/16/23 Range/Units 06:15 06:37 WBC (4.8-10.8) K/ul RBC (4.20-5.40) M/uL Hgb (12.0-16.0) g/dl Hct (37.0-47.0) % MCV (80.0-100.0) fL MCH (25.0-34.0) pg MCHC (32.0-36.0) g/dL RDW Std Deviation (36.4-46.3) fL RDW Coeff of Toshia (11.5-14.5) % Plt Count (130-400) K/uL MPV (9.4-12.4) fL Immature Gran % (Auto) % Neut % (Auto) % Lymph % (Auto) % Maverick % (Auto) % Eos % (Auto) % Baso % (Auto) % Neut # (Auto) (1.40-6.50) K/uL Lymph # (Auto) (1.2-3.4) K/uL Maverick # (Auto) (0.11-0.59) K/uL Eos # (Auto) (0-0.50) K/uL Baso # (Auto) (0-0.2) K/uL Immature Gran # (Auto) (0.01-0.20) K/uL Sodium (136-145) mmol/L Potassium (3.5-5.1) mmol/L Chloride (98-107) mmol/L Carbon Dioxide (21-32) mmol/L Anion Gap (3-11) BUN (6-23) mg/dl Creatinine (0.6-1.2) mg/dl Est Cr Clr Drug Dosing ml/min Est GFR ( Amer) ml/min Est GFR (Non-Af Amer) ml/min BUN/Creatinine Ratio (10-20) Glucose (70-99(Fasting)) mg/dl POC Glucose 150 H (70-99) mg/dl Calcium (8.6-10.3) mg/dl Hepatitis C Ab (EIA) NON-REACTIVE (NON-REACTIVE) Hep C Ab Signal/Cutoff 0.02 (<1.00) SARS-CoV-2, RNA, NAAT (NEGATIVE) Total Time Total Time Spent Total Time Spent (In Minutes): 20 Discharge Plan Discharge Items Patient Disposition: Home - Self-Care Reason For Visit: Left Shoulder Primary Osteoarthritis Discharge Diagnosis: Left Shoulder Primary Osteoarthritis Activity: Per Instructions section Weightbearing: Left non-weightbearing Non-emergency contact: Surgeon Call non-emergency contact if: you have any medication questions, your pain is not controlled, your temperature is above 101.5, your wound has increased redness and your wound has increased drainage Follow-up/Referrals: Adam Chambres MD [Surgeon] - (Follow up with Dr Chambers or his PA in 2 weeks from the day of your surgery for your first post operative visit.) George Leon D.O. [Primary Care Provider] - Diet: Carb Consistent or DM2 Addtl Attending Provider Instructions: ACTIVITY RECOMMENDATIONS: SELF CARE INSTRUCTIONS AFTER TOTAL SHOULDER ARTHROPLASTY REVERSE A. You may do daily exercises as taught in physical therapy while in hospital. No lifting with the operative arm. B. You are to wear your sling/immobilizer at all times EXCEPT when performing your daily exercises and for hygiene purposes. C. You may perform dry, daily dressing changes. Please keep your incision covered. You may shower 48 hours after surgery. Do not apply soap or any ointment/lotions directly over incision. Do not soak incision in bath tub/swimming pool. D. You may use ice as needed to operative shoulder. SPECIAL CARE INSTRUCTIONS: VERY IMPORTANT TO READ AND REVIEW A. There are a few signs you need to watch for after you are home. Call [facility] at [phone] if you experience any of the followin. Increased severe shoulder pain. Some pain is expected especially when you exercise. 2. Increased swelling in you shoulder or arm; pain or swelling in either upper extremity. 3. Any fluid drainage from the incision. 4. Shortness of breath or chest pain. B. Please call [facility] at [phone] if you have any questions or concerns about your operation or recovery. C. Call your physician if: 1. Temperature is greater than 101 degrees (F). 2. Pain is not relieved by prescribed pain medications. 3. Increase drainage or redness from incision. 4. Unanswered questions or concerns. FOLLOW UP VISIT: Please call [facility] at [phone] to schedule a follow up appointment with Dr. Chambers or his PA in 12-14 days from your surgery date. Stand-Alone Forms: My [facility] [place], Smoking Cessation Medications and DC Order Prescriptions: New acetaminophen [Tylenol Extra Strength] 500 mg Tablet 1,000 mg PO Q8 14 Days Qty: 84 0RF polyethylene glycol 3350 [Miralax] 17 gram powder in packet 17 g PO DAILY PRN (Reason: constipation) Qty: 5 0RF cefadroxil 500 mg capsule 500 mg PO BID Qty: 14 0RF oxycodone 5 mg tablet 5 mg PO Q4H MDD 6 PRN (Reason: pain) Qty: 30 0RF Continued multivitamin [Multiple Vitamins] Tablet 1 tab PO QAM trazodone 50 mg Tablet 50 mg PO HS rizatriptan [Maxalt] 10 mg Tablet 1 dose PO UD PRN (Reason: migraines) cyanocobalamin (vitamin B-12) [Vitamin B-12] 1,000 mcg Tablet 1,000 mcg PO QAM DHEA 50 mg Capsule 50 mg PO QAM omeprazole 40 mg Capsule,Delayed Release(Dr/Ec) 40 mg PO QPM amitriptyline 50 mg Tablet 50 mg PO QPM diphenhydramine HCl [Benadryl] 25 mg Capsule 25 mg PO UD PRN (Reason: ALLERGIES) ferrous sulfate [iron] 325 mg (65 mg iron) Tablet 325 mg PO QAM metformin 1,000 mg Tablet 1,000 mg PO BID metoprolol tartrate 50 mg Tablet 50 mg PO BID hydrochlorothiazide 12.5 mg Capsule 12.5 mg PO QAM cranberry 400 mg Capsule 1 dose PO HS cholecalciferol (vitamin D3) [Vitamin D3] 1,000 unit Capsule 1,000 unit PO HS glucosamine-chondroitin 250-200 mg Tablet 2 tab PO QAM cinnamon bark [Cinnamon] 500 mg Capsule 2,000 mg PO HS [id number] [Fioricet] 50-300-40 mg Capsule 1 cap PO UD PRN (Reason: migraines) milk thistle seed extract 140 mg Capsule 140 mg PO HS Probiotic 3 billion cell Capsule 1 tab PO HS turmeric 400 mg Capsule 1 cap PO HS rosuvastatin 10 mg Tablet 10 mg PO QPM Toujeo Max U-300 SoloStar 300 unit/mL (3 mL) Insulin Pen 82 unit SUBCUT HS Vescepa 1 dose PO BID ropinirole 4 mg Tablet 4 mg PO HS Rx Instructions: administer 1-3 hours before bedtime Jardiance 25 mg Tablet 25 mg PO QAM Ozempic 1 mg/dose (2 mg/1.5 mL) Pen Injector 2 mg SUBCUT WK Patient Comments: TAKES ON TUESDAYS aspirin 81 mg Tablet,Delayed Release (Dr/Ec) 81 mg PO QPM Held tramadol 50 mg Tablet 100 mg PO HS Hold Instructions: Refrain from taking tramadol while you are taking oxycodone for pain control Discharge Orders: Discharge Order (Routine); Ordered 02/16/23 Ordered By: Thong Daley Admission Data Admit Date/Time: 02/15/23 09:50 Attending Provider: Adam Chambers Admit Provider: Adam Chambers Primary Care Provider: George Leon Other Interventions: Discharge Summary Assessment (RN) Last Done: 02/16/23 09:42
== END 2023-02-16 11:50 | disposition home or self-care (01) ==
LOC: ASU 05:05 → 3E 05:05